=== PATIENT | female | born 1960 ===

== ENCOUNTER 2017-08-06 12:02 | Inpatient (IN) | payer OTHER ==
[2017-08-06] MEDS ORDERED: Sodium Chloride 0.9% 1,000 ML IV STA (13:10)
--- NOTE | 2017-08-06 13:14 | ED PDOC ---
HPI: Abdomen Time Seen by Provider: 08/06/17 12:58 Chief Complaint (Nursing): Headache History Per: Patient Onset/Duration Of Symptoms: Days (3) Current Symptoms Are (Timing): Still Present Severity: Moderate Pain Scale Rating Of: 4 Location Of Pain/Discomfort: RLQ, LLQ Quality Of Discomfort: Cramping Associated Symptoms: Chills, Nausea, Vomiting, Diarrhea. denies: Urinary Symptoms Additional Complaint(s): Lower abd pain assoc with NVD and chills. Also c/o headache. Past Medical History Vital Signs: Last Vital Signs Temp 97.9 F 08/06/17 12:14 Pulse 85 08/06/17 12:14 Resp 18 08/06/17 12:14 BP 117/97 H 08/06/17 12:14 Pulse Ox 98 08/06/17 13:14 - Medical History Other PMH: Diverticulosis - Family History Family History: States: Unknown Family Hx - Allergies Allergies/Adverse Reactions: Allergies Allergy/AdvReac Type Severity Reaction Status Date / Time No Known Allergies Allergy Verified 08/06/17 12:14 Review of Systems ROS Statement: Except As Marked, All Systems Reviewed And Found Negative Constitutional: Positive for: Chills Gastrointestinal: Positive for: Nausea, Vomiting, Abdominal Pain, Diarrhea Neurological: Positive for: Headache Physical Exam - Reviewed Nursing Documentation Reviewed: Yes Vital Signs Reviewed: Yes - Physical Exam Appears: Positive for: Non-toxic, Uncomfortable Head Exam: Positive for: ATRAUMATIC, NORMAL INSPECTION, NORMOCEPHALIC Skin: Positive for: Normal Color, Warm, DRY Eye Exam: Positive for: EOMI, Normal appearance, PERRL ENT: Positive for: Other (Mucous membranes dry) Neck: Positive for: Normal, Painless ROM Cardiovascular/Chest: Positive for: Regular Rate, Rhythm Respiratory: Positive for: CNT, Normal Breath Sounds Gastrointestinal/Abdominal: Positive for: Soft, Tenderness (Lower quads bilat.) Back: Positive for: Normal Inspection Extremity: Positive for: Normal ROM Neurologic/Psych: Positive for: Alert, Oriented. Negative for: Motor/Sensory Deficits - Laboratory Results Result Diagrams: 08/06/17 13:40 08/06/17 13:40 - ECG O2 Sat by Pulse Oximetry: 98 Disposition - Clinical Impression Clinical Impression: Diverticular disease, Headache - Patient ED Disposition Is Patient to be Admitted: Yes - Disposition Disposition Time: 16:48 Condition: FAIR Forms: [facility] (Albanian) - Pt Status Changed To: Hospital Disposition Of: Observation - POA Present On Arrival: None
[2017-08-06 13:55] LABS: BASO % 0.2 % (0.0-2.0); EOS % 0.3 % (0.0-4.0); HEMOGLOBIN 14.5 g/dL (12.0-16.0); LYMPH # 0.5 K/uL (1.0-4.3); LYMPH % 19.7 % (20.0-40.0); MEAN CELL VOLUME 88.7 fl (81.0-99.0); MEAN CORPUSCULAR HEMOGLOBIN 30.1 pg (27.0-31.0); MEAN CORPUSCULAR HGB CONC 33.9 g/dL (33.0-37.0); MEAN PLATELET VOLUME 9.5 fl (7.2-11.7); MONO % 0.4 % (0.0-10.0); NEUT # 1.9 K/uL (1.8-7.0); NEUT % 79.4 % (50.0-75.0); NRBC % 0.2 % (0.0-0.0); RBC 4.83 Mil/uL (3.80-5.20); RED CELL DISTRIBUTION WIDTH 13.5 % (11.5-14.5); WHITE BLOOD COUNT 2.4 K/uL (4.8-10.8)
[2017-08-06 14:02] LABS: ALB/GLOB RATIO 1.6 (1.0-2.1); ALBUMIN 4.2 g/dL (3.5-5.0); ALT/SGPT 104 U/L (9-52); AST/SGOT 152 U/L (14-36); BLOOD UREA NITROGEN 16 mg/dl (7-17); CALCIUM 9.2 mg/dL (8.4-10.2); GFR AFRICAN-AMERICAN > 60; GFR NON-AFRICAN AMERICAN > 60
[2017-08-06] MEDS ORDERED: metroNIDAZOLE 500mg/100ml NS 100 ML IVPB STA (16:45)
[2017-08-06] MEDS ORDERED: Ciprofloxacin 400mg/200ml D5W 400 MG/200 ML BAG IVPB STA (16:45)
--- NOTE | 2017-08-06 17:36 | CT ---
PROCEDURE: CT HEAD WITHOUT CONTRAST. HISTORY: Headache COMPARISON: None available. TECHNIQUE: Axial computed tomography images were obtained through the head/brain without intravenous contrast. Coronal and sagittal reconstructed images. Radiation dose: Total exam DLP = 727.29 mGy-cm. This CT exam was performed using one or more of the following dose reduction techniques: Automated exposure control, adjustment of the mA and/or kV according to patient size, and/or use of iterative reconstruction technique. FINDINGS: HEMORRHAGE: No intracranial hemorrhage. BRAIN: No mass effect or edema. No atrophy or chronic microvascular ischemic changes. VENTRICLES: Unremarkable. No hydrocephalus. CALVARIUM: Unremarkable. PARANASAL SINUSES: Unremarkable as visualized. No significant inflammatory changes. MASTOID AIR CELLS: Unremarkable as visualized. No inflammatory changes. OTHER FINDINGS: None. IMPRESSION: No acute intracranial abnormalities. No significant findings to account for the clinical presentation. She
--- NOTE | 2017-08-07 00:31 | PCM.RRT ---
<Serena Pereyra - Last Filed: 08/07/17 00:46> I.Reason for ENVIRONMENTAL ANALYST - A) Acute Change in Patient: Subjective: 56 yo F with hx diverticular disease, ENVIRONMENTAL ANALYST called for hypotension. S: On arrival, 56 yo F, resting in bed, awake, alert, able to speak in full sentences. States she feels "so-so." O: CV: S1S2, RRR Resp: clear to auscultation bilaterally, normal effort Abd: +BS, soft, no rebound/guarding Ext: no edema Vitals 82/48 mm Hg, HR 67, RR 16, O2 sat 99% on 2L O2, 98.6F NSR @ 66 bpm on cafeteria monitor Fingerstick 113 Repeat BP measurements 85/57, 85/54. HR 66-67, O2 sat remained 98-99%. Additional liter NS started during ENVIRONMENTAL ANALYST. A/P 56 yo F with hx diverticular disease, ENVIRONMENTAL ANALYST called for hypotension. CBC, CMP, VBG+ lactate, urinalysis, urine culture, lipase Transfer to ICU Monitor BP in response to fluids; consider pressors Pt seen/discussed with hospitalist honing machine set up operator Dr. Jeter. <Jelani Jeter - Last Filed: 08/07/17 06:26> ENVIRONMENTAL ANALYST Nurse Assessment - Vital Signs Vital Signs: Rapid Response Vital Sign Blood Pressure 85/54 Pulse Rate 65 Respiratory Rate 13 Temperature 98.7 F Oxygen Saturation 99 - Vital Signs at end of ENVIRONMENTAL ANALYST Vital Signs at end of ENVIRONMENTAL ANALYST: Rapid Response End Vital Sign Blood Pressure 74/45 Pulse Rate 66 Respiratory Rate 18 Temperature 98.1 F O2 Sat by Pulse Oximetry 99 Attending/Attestation - Attestation I have personally seen and examined this patient.: Yes I have fully participated in the care of the patient.: Yes I have reviewed all pertinent clinical information, including history, physical exam and plan: Yes Notes (Text): 08/07/17 06:22 I saw and examined this patient shoulder to shoulder with Dr Preeyra. The assessment and plan represent my direct input. ENVIRONMENTAL ANALYST called because of hypotension with SBP initially 84mmhg and falling to 73mmhg The patient was given IV NS bolus total of 1.5 liters. initally with no significant improvement the patient was transferred to ICU as preparation for Pressors. Jelani Jeter MD
[2017-08-07 00:48] LABS: SQUAMOUS EPITHIAL 1 /hpf (0-5); URINE BILIRUBIN NEGATIVE (NEGATIVE); URINE BLOOD NEGATIVE (NEGATIVE); URINE CLARITY CLEAR (Clear); URINE COLOR STRAW (YELLOW); URINE GLUCOSE (UA) NEG (Normal); URINE LEUKOCYTE ESTERASE NEG Leu/uL (Negative); URINE PROTEIN NEGATIVE (NEGATIVE); URINE UROBILINOGEN 0.2-1.0 mg/dL (0.2-1.0)
[2017-08-07 00:52] LABS: EOS % 0.1 % (0.0-4.0); HEMOGLOBIN 11.6 g/dL (12.0-16.0); LYMPH # 0.5 K/uL (1.0-4.3); LYMPH % 4.9 % (20.0-40.0); MEAN CELL VOLUME 90.1 fl (81.0-99.0); MEAN CORPUSCULAR HEMOGLOBIN 30.1 pg (27.0-31.0); MEAN CORPUSCULAR HGB CONC 33.4 g/dL (33.0-37.0); MEAN PLATELET VOLUME 9.3 fl (7.2-11.7); MONO # 0.7 K/uL (0.0-0.8); MONO % 7.1 % (0.0-10.0); NEUT # 8.5 K/uL (1.8-7.0); NEUT % 87.9 % (50.0-75.0); PLATELET COUNT 97 K/uL (130-400); RBC 3.86 Mil/uL (3.80-5.20); RED CELL DISTRIBUTION WIDTH 13.6 % (11.5-14.5); WHITE BLOOD COUNT 9.6 K/uL (4.8-10.8)
[2017-08-07 01:02] LABS: ALB/GLOB RATIO 1.2 (1.0-2.1); ALBUMIN 2.9 g/dL (3.5-5.0); ALT/SGPT 157 U/L (9-52); AST/SGOT 132 U/L (14-36); BLOOD UREA NITROGEN 12 mg/dl (7-17); CALCIUM 8.1 mg/dL (8.4-10.2); GFR AFRICAN-AMERICAN > 60; GFR NON-AFRICAN AMERICAN > 60
--- NOTE | 2017-08-07 01:10 | CP.PCM.CON ---
History of Present Illness - History of Present Illness History of Present Illness: PMD: Alfredo Quiroz MD Reson for Consult: Critical Care and management of Hypotension Chief Complaint: Hypotension/Abdominal pain HPI: the hx was obtained from the patient and after review of the medical records. She is a 56 years old female with hx of Diverticuolosis who came to the ED referring 2-3 weeks of headache, lower abdominal pain RLQ and LLQ, that is continuous, diarrhea, nausea and vomits with chills and body aches. She was admitted to the Medical Unit where Rapid Response Team was called because her Blood pressure decreased to 84/54mmhg. Because of unsuccessful resuscitation, she was transferred to the ICU to have Norepinephrine started if no improvement. PMH: Diverticulosis PSH: [place] Section SH: No illegal drug use; No Alcohol use; Never Smoked FH: States: Unknown Family Hx Allergies: NKDA Medication: None Review of Systems - Constitutional Constitutional: Chills, Headache - EENT Eyes: Requires Corrective Lenses. absent: Floaters, Itchy Eyes Ears: absent: Decreased Hearing, Ear Pain Nose/Mouth/Throat: absent: Epistaxis, Nasal Congestion - Cardiovascular Cardiovascular: absent: Chest Pain, Diaphoresis, Edema - Respiratory Respiratory: absent: Cough, Wheezing, Chest Congestion - Gastrointestinal Gastrointestinal: Abdominal Pain, Diarrhea, Nausea, Vomiting - Genitourinary Genitourinary: absent: Dysuria, Flank Pain - Musculoskeletal Musculoskeletal: Arthralgias - Integumentary Integumentary: absent: Pruritus, Rash, Sores, Striae, Swelling - Neurological Neurological: Headaches, Weakness. absent: Confusion, Focal Weakness - Psychiatric Psychiatric: absent: Anxiety, Depression, Panic Attacks - Endocrine Endocrine: absent: Palpitations, Polydipsia, Polyuria - Hematologic/Lymphatic Hematologic: absent: Easy Bleeding, Easy Bruising Past Patient History - Past Medical History & Family History Past Medical History?: Yes - Past Social History Smoking Status: Never Smoked Chewing Tobacco Use: No Cigar Use: No Alcohol: None Drugs: Denies - CARDIAC Hx Cardiac Disorders: No - PULMONARY Hx Respiratory Disorders: No - NEUROLOGICAL Hx Neurological Disorder: No - HEENT Hx HEENT Problems: No - RENAL Hx Chronic Kidney Disease: No - ENDOCRINE/METABOLIC Hx Endocrine Disorders: No - HEMATOLOGICAL/ONCOLOGICAL Hx Blood Disorders: No - INTEGUMENTARY Hx Dermatological Problems: No - MUSCULOSKELETAL/RHEUMATOLOGICAL Hx Musculoskeletal Disorders: No Hx Falls: No - GASTROINTESTINAL Hx Gastrointestinal Disorders: Yes Other/Comment: diverticulosis - GENITOURINARY/GYNECOLOGICAL Hx Genitourinary Disorders: No - PSYCHIATRIC Hx Psychophysiologic Disorder: No Hx Substance Use: No - SURGICAL HISTORY Hx Surgeries: Yes Hx Section: Yes Hx Cholecystectomy: Yes Hx Hysterectomy: Yes - ANESTHESIA Hx Anesthesia: Yes Hx Anesthesia Reactions: Yes Hx Malignant Hyperthermia: No Meds Allergies/Adverse Reactions: Allergies Allergy/AdvReac Type Severity Reaction Status Date / Time No Known Allergies Allergy Verified 08/06/17 12:14 - Medications Medications: Current Medications Dicyclomine HCl (Bentyl) 20 mg PO QID PRN PRN Reason: abd cramping Famotidine (Pepcid) 20 mg IVP Q12 SHELLI Last Admin: 08/06/17 22:30 Dose: 20 mg Ciprofloxacin (Cipro 400mg/200ml Dsw) 400 mg in 200 mls @ 200 mls/hr IVPB Q12 SHELLI PRN Reason: Protocol Ketorolac Tromethamine (Toradol) 30 mg IVP Q6 PRN PRN Reason: Pain, moderate (4-7) Last Admin: 08/06/17 20:26 Dose: 30 mg Morphine Sulfate (Morphine) 2 mg IVP Q4 PRN PRN Reason: Pain, severe (8-10) Ondansetron HCl (Zofran Inj) 4 mg IVP Q6 PRN PRN Reason: Nausea/Vomiting Physical Exam - Constitutional Appears: No Acute Distress - Head Exam Head Exam: ATRAUMATIC, NORMAL INSPECTION, NORMOCEPHALIC - Eye Exam Eye Exam: EOMI, Normal appearance Pupil Exam: NORMAL ACCOMODATION, PERRL - ENT Exam ENT Exam: Mucous Membranes Moist, Normal Exam - Neck Exam Neck exam: Positive for: Full Rom, Normal Inspection, Tenderness - Respiratory Exam Respiratory Exam: absent: Decreased Breath Sounds, Rhonchi, Wheezes - Cardiovascular Exam Cardiovascular Exam: REGULAR RHYTHM, RRR, +S1, +S2 - GI/Abdominal Exam Additional comments: Full, soft, decreased bowel sounds, mild generalized tenderness, no rebound, no guarding. - Rectal Exam Rectal Exam: Deferred - Extremities Exam Extremities exam: Positive for: normal inspection. Negative for: full ROM, pedal edema - Back Exam Back exam: NORMAL INSPECTION. absent: CVA tenderness (L), CVA tenderness (R) - Neurological Exam Neurological exam: Alert, CN II-XII Intact, Oriented x3, Reflexes Normal - Psychiatric Exam Psychiatric exam: Flat Affect - Skin Skin Exam: Dry, Intact, Normal Color, Warm Results - Vital Signs Recent Vital Signs: Last Vital Signs Temp 98 F 08/06/17 23:55 Pulse 67 08/06/17 23:55 Resp 20 08/06/17 23:55 BP 80/46 L 08/06/17 23:55 Pulse Ox 98 08/06/17 23:55 - Labs Result Diagrams: 08/07/17 00:30 08/07/17 00:30 Labs: Laboratory Results - last 24 hr 08/06/17 08/06/17 08/06/17 13:40 13:40 23:58 WBC 2.4 L RBC 4.83 Hgb 14.5 Hct 42.9 MCV 88.7 MCH 30.1 MCHC 33.9 RDW 13.5 Plt Count 128 L MPV 9.5 Neut % (Auto) 79.4 H Lymph % (Auto) 19.7 L [place] % (Auto) 0.4 Eos % (Auto) 0.3 Baso % (Auto) 0.2 Neut # (Auto) 1.9 Lymph # (Auto) 0.5 L [place] # (Auto) 0.0 Eos # (Auto) 0.0 Baso # (Auto) 0.0 Sodium 143 Potassium 3.6 Chloride 106 Carbon Dioxide 18 L Anion Gap 23 H BUN 16 Creatinine 0.7 Est GFR ( Amer) > 60 Est GFR (Non-Af Amer) > 60 POC Glucose (mg/dL) 113 H Random Glucose 104 Calcium 9.2 Total Bilirubin 1.2 AST 152 H ALT 104 H Alkaline Phosphatase 83 Total Protein 6.8 Albumin 4.2 Globulin 2.6 Albumin/Globulin Ratio 1.6 Urine Color Urine Clarity Urine pH Ur Specific [place] Urine Protein Urine Glucose (UA) Urine Ketones Urine Blood Urine Nitrate Urine Bilirubin Urine Urobilinogen Ur Leukocyte Esterase Urine RBC (Auto) Urine Microscopic WBC Ur Squamous Epith Cells 08/07/17 08/07/17 08/07/17 00:30 00:30 00:30 WBC 9.6 D RBC 3.86 Hgb 11.6 L D Hct 34.8 MCV 90.1 MCH 30.1 MCHC 33.4 RDW 13.6 Plt Count 97 L D MPV 9.3 Neut % (Auto) 87.9 H Lymph % (Auto) 4.9 L [place] % (Auto) 7.1 Eos % (Auto) 0.1 Baso % (Auto) 0.0 Neut # (Auto) 8.5 H Lymph # (Auto) 0.5 L [place] # (Auto) 0.7 Eos # (Auto) 0.0 Baso # (Auto) 0.0 Sodium 142 Potassium 3.5 L Chloride 107 Carbon Dioxide 21 L Anion Gap 18 BUN 12 Creatinine 0.7 Est GFR ( Amer) > 60 Est GFR (Non-Af Amer) > 60 POC Glucose (mg/dL) Random Glucose 109 H Calcium 8.1 L Total Bilirubin 0.7 AST 132 H ALT 157 H D Alkaline Phosphatase 54 Total Protein 5.3 L Albumin 2.9 L D Globulin 2.4 Albumin/Globulin Ratio 1.2 Urine Color Straw Urine Clarity Clear Urine pH 6.0 Ur Specific [place] 1.005 Urine Protein Negative Urine Glucose (UA) Neg Urine Ketones Negative Urine Blood Negative Urine Nitrate Negative Urine Bilirubin Negative Urine Urobilinogen 0.2-1.0 Ur Leukocyte Esterase Neg Urine RBC (Auto) < 1 Urine Microscopic WBC < 1 Ur Squamous Epith Cells 1 - Imaging and Cardiology CT scan - head Status: Image reviewed by me, Report reviewed by me Additional comment: No acute intracraneal abnormality Assessment & Plan - Assessment and Plan (Free Text) Assessment: #. Hypotension #. Diverticular Disease #. Abdominal Pain #. Thrombocytopenia #. Hypokalemia Plan: 56 years old female with hx of Diverticuolosis who came to the ED referring 2-3 weeks of headache, lower abdominal pain RLQ and LLQ, that is continuous, diarrhea, nausea and vomits with chills and body aches. She was admitted to the Medical Unit where Rapid Response Team was called because her Blood pressure decreased to 84/54mmhg. Because of unsuccessful resuscitation, she was transferred to the ICU to have Norepinephrine started if no improvement #. Hypotension probably secondary to septic shock vs neurogenic shock - IV fluids NS one Liter bolus then continue at 200Mls /hr - Start Vasopressor if no improvement of BP - Follow Blood culture #. Diverticular Disease most likely Diverticulosis. - Patient will need CT abdomen with contrast to confirm Diverticulitis - Cipro - flagyl - NPO #. Abdominal Pain - Pain management #. Thrombocytopenia most likely not due to Heparin induced Thrombocytopenia but consider Sepsis as the cause - Treat Infection - Follow Platelets #. Hypokalemia - Replete KCL #. DVT prophylaxis with SCD #. CODE Status: Full - Date & Time Date: 08/07/17 Time: 01:10
[2017-08-07] MEDS ORDERED: Sodium Chloride 0.9% 1,000 ML IV SCH ×3 (01:15→18:00)
[2017-08-07 01:21] LABS: VENOUS BLOOD GAS BASE EXCESS -3.3 mmol/L (0.0-2.0); VENOUS BLOOD GAS PCO2 36 mmHg (40-60); VENOUS BLOOD GAS PO2 51 mm/Hg (30-55); VENOUS BLOOD PH 7.38 (7.32-7.43)
[2017-08-07] MEDS: Sodium Chloride 0.9% 1,000 ML IV SCH ×2 (02:00→08:06)
[2017-08-07 02:42] LABS: ANISOCYTOSIS SLIGHT; BANDS 2 % (0-2); BASOPHIL 3 % (0-2); HYPOCHROMIC MODERATE; LARGE PLATELETS PRESENT; LYMPHOCYTE 8 % (20-50); MONOCYTE 4 % (0-10); NEUTROPHIL 83 % (42-75); OVALOCYTES SLIGHT; PLATELET ESTIMATE MARKEDLY DECREASED (NORMAL); TOTAL CELLS COUNTED 100
[2017-08-07] MEDS ORDERED: Iohexol 240 (50 ml) PO ONE (07:27)
--- NOTE | 2017-08-07 08:03 | CP.PCM.HP ---
History of Present Illness - History of Present Illness History of Present Illness: pt admitted for diverticulosis w/ abd pain, no f/c, n/v/d at present. had n/v ship's captain. pt had outpt ct w/ diverticulosis noted surgery/gi consult pending pt required training associate overnight r/t hypotension. bp low normal at present. all bw noted. pt hadheadache yesterday ct normal, no c/o headache at present c/o chronic fatigue Present on Admission - Present on Admission Any Indicators Present on Admission: No Review of Systems - Gastrointestinal Gastrointestinal: As Per HPI, Abdominal Pain, Nausea, Vomiting - Neurological Neurological: As Per HPI, Headaches Past Patient History - Past Medical History & Family History Past Medical History?: Yes - Past Social History Smoking Status: Never Smoked Chewing Tobacco Use: No Cigar Use: No Alcohol: None Drugs: Denies - CARDIAC Hx Cardiac Disorders: No - PULMONARY Hx Respiratory Disorders: No - NEUROLOGICAL Hx Neurological Disorder: No - HEENT Hx HEENT Problems: No - RENAL Hx Chronic Kidney Disease: No - ENDOCRINE/METABOLIC Hx Endocrine Disorders: No - HEMATOLOGICAL/ONCOLOGICAL Hx Blood Disorders: No - INTEGUMENTARY Hx Dermatological Problems: No - MUSCULOSKELETAL/RHEUMATOLOGICAL Hx Musculoskeletal Disorders: No Hx Falls: No - GASTROINTESTINAL Hx Gastrointestinal Disorders: Yes Other/Comment: diverticulosis - GENITOURINARY/GYNECOLOGICAL Hx Genitourinary Disorders: No - PSYCHIATRIC Hx Psychophysiologic Disorder: No Hx Substance Use: No - SURGICAL HISTORY Hx Surgeries: Yes Hx Section: Yes Hx Cholecystectomy: Yes Hx Hysterectomy: Yes - ANESTHESIA Hx Anesthesia: Yes Hx Anesthesia Reactions: Yes Hx Malignant Hyperthermia: No Meds Allergies/Adverse Reactions: Allergies Allergy/AdvReac Type Severity Reaction Status Date / Time No Known Allergies Allergy Verified 08/06/17 12:14 Physical Exam - Constitutional Appears: Well, Non-toxic, No Acute Distress - Head Exam Head Exam: ATRAUMATIC, NORMAL INSPECTION, NORMOCEPHALIC - Eye Exam Eye Exam: EOMI, Normal appearance, PERRL Pupil Exam: NORMAL ACCOMODATION, PERRL - ENT Exam ENT Exam: Mucous Membranes Moist, Normal Exam - Neck Exam Neck exam: Positive for: Normal Inspection - Respiratory Exam Respiratory Exam: Clear to Auscultation Bilateral, NORMAL BREATHING PATTERN - Cardiovascular Exam Cardiovascular Exam: REGULAR RHYTHM, RRR, +S1, +S2 - GI/Abdominal Exam GI & Abdominal Exam: Normal Bowel Sounds, Soft. absent: Tenderness - Extremities Exam Extremities exam: Positive for: full ROM, normal capillary refill, normal inspection, pedal pulses present - Back Exam Back exam: NORMAL INSPECTION - Neurological Exam Neurological exam: Alert, CN II-XII Intact, Normal Gait, Oriented x3, Reflexes Normal - Psychiatric Exam Psychiatric exam: Normal Affect, Normal Mood - Skin Skin Exam: Dry, Intact, Normal Color, Warm Results - Vital Signs Recent Vital Signs: Last Vital Signs Temp 99 F 08/07/17 04:00 Pulse 59 L 08/07/17 06:00 Resp 16 08/07/17 06:00 BP 86/46 L 08/07/17 06:00 Pulse Ox 100 08/07/17 06:00 - Labs Result Diagrams: 08/07/17 00:30 08/07/17 00:30 Labs: Laboratory Results - last 24 hr 08/06/17 08/06/17 08/06/17 13:40 13:40 23:58 WBC 2.4 L RBC 4.83 Hgb 14.5 Hct 42.9 MCV 88.7 MCH 30.1 MCHC 33.9 RDW 13.5 Plt Count 128 L MPV 9.5 Neut % (Auto) 79.4 H Lymph % (Auto) 19.7 L [place] % (Auto) 0.4 Eos % (Auto) 0.3 Baso % (Auto) 0.2 Neut # (Auto) 1.9 Lymph # (Auto) 0.5 L [place] # (Auto) 0.0 Eos # (Auto) 0.0 Baso # (Auto) 0.0 Neutrophils % (Manual) Band Neutrophils % Lymphocytes % (Manual) Monocytes % (Manual) Basophils % (Manual) Platelet Estimate Large Platelets Hypochromasia (manual) Anisocytosis (manual) Ovalocytes pO2 VBG pH VBG pCO2 VBG HCO3 VBG Total CO2 VBG O2 Sat (Calc) VBG Base Excess VBG Potassium Glucose Lactate FiO2 Sodium 143 Potassium 3.6 Chloride 106 Carbon Dioxide 18 L Anion Gap 23 H BUN 16 Creatinine 0.7 Est GFR ( Amer) > 60 Est GFR (Non-Af Amer) > 60 POC Glucose (mg/dL) 113 H Random Glucose 104 Calcium 9.2 Total Bilirubin 1.2 AST 152 H ALT 104 H Alkaline Phosphatase 83 Total Protein 6.8 Albumin 4.2 Globulin 2.6 Albumin/Globulin Ratio 1.6 Venous Blood Potassium Urine Color Urine Clarity Urine pH Ur Specific [place] Urine Protein Urine Glucose (UA) Urine Ketones Urine Blood Urine Nitrate Urine Bilirubin Urine Urobilinogen Ur Leukocyte Esterase Urine RBC (Auto) Urine Microscopic WBC Ur Squamous Epith Cells 08/07/17 08/07/17 08/07/17 00:30 00:30 00:30 WBC 9.6 D RBC 3.86 Hgb 11.6 L D Hct 34.8 MCV 90.1 MCH 30.1 MCHC 33.4 RDW 13.6 Plt Count 97 L D MPV 9.3 Neut % (Auto) 87.9 H Lymph % (Auto) 4.9 L [place] % (Auto) 7.1 Eos % (Auto) 0.1 Baso % (Auto) 0.0 Neut # (Auto) 8.5 H Lymph # (Auto) 0.5 L [place] # (Auto) 0.7 Eos # (Auto) 0.0 Baso # (Auto) 0.0 Neutrophils % (Manual) 83 H Band Neutrophils % 2 Lymphocytes % (Manual) 8 L Monocytes % (Manual) 4 Basophils % (Manual) 3 H Platelet Estimate Markedly decreased L Large Platelets Present Hypochromasia (manual) Moderate Anisocytosis (manual) Slight Ovalocytes Slight pO2 VBG pH VBG pCO2 VBG HCO3 VBG Total CO2 VBG O2 Sat (Calc) VBG Base Excess VBG Potassium Glucose Lactate FiO2 Sodium 142 Potassium 3.5 L Chloride 107 Carbon Dioxide 21 L Anion Gap 18 BUN 12 Creatinine 0.7 Est GFR ( Amer) > 60 Est GFR (Non-Af Amer) > 60 POC Glucose (mg/dL) Random Glucose 109 H Calcium 8.1 L Total Bilirubin 0.7 AST 132 H ALT 157 H D Alkaline Phosphatase 54 Total Protein 5.3 L Albumin 2.9 L D Globulin 2.4 Albumin/Globulin Ratio 1.2 Venous Blood Potassium Urine Color Straw Urine Clarity Clear Urine pH 6.0 Ur Specific [place] 1.005 Urine Protein Negative Urine Glucose (UA) Neg Urine Ketones Negative Urine Blood Negative Urine Nitrate Negative Urine Bilirubin Negative Urine Urobilinogen 0.2-1.0 Ur Leukocyte Esterase Neg Urine RBC (Auto) < 1 Urine Microscopic WBC < 1 Ur Squamous Epith Cells 1 08/07/17 01:18 WBC RBC Hgb Hct MCV MCH MCHC RDW Plt Count MPV Neut % (Auto) Lymph % (Auto) [place] % (Auto) Eos % (Auto) Baso % (Auto) Neut # (Auto) Lymph # (Auto) [place] # (Auto) Eos # (Auto) Baso # (Auto) Neutrophils % (Manual) Band Neutrophils % Lymphocytes % (Manual) Monocytes % (Manual) Basophils % (Manual) Platelet Estimate Large Platelets Hypochromasia (manual) Anisocytosis (manual) Ovalocytes pO2 51 VBG pH 7.38 VBG pCO2 36 L VBG HCO3 22.0 VBG Total CO2 22.4 VBG O2 Sat (Calc) 90.0 H VBG Base Excess -3.3 L VBG Potassium 3.5 L Glucose 115 H Lactate 1.5 FiO2 21.0 Sodium 141.0 Potassium Chloride 115.0 H Carbon Dioxide Anion Gap BUN Creatinine Est GFR ( Amer) Est GFR (Non-Af Amer) POC Glucose (mg/dL) Random Glucose Calcium Total Bilirubin AST ALT Alkaline Phosphatase Total Protein Albumin Globulin Albumin/Globulin Ratio Venous Blood Potassium 3.5 L Urine Color Urine Clarity Urine pH Ur Specific [place] Urine Protein Urine Glucose (UA) Urine Ketones Urine Blood Urine Nitrate Urine Bilirubin Urine Urobilinogen Ur Leukocyte Esterase Urine RBC (Auto) Urine Microscopic WBC Ur Squamous Epith Cells Assessment & Plan (1) DVT prophylaxis Status: Acute (2) Hypotension Assessment and Plan: ivf, icu care monitor closely no obv s/s sepsis at this time Status: Acute (3) Chronic fatigue Assessment and Plan: outpt f/u-cardio and bw Status: Acute (4) Diverticular disease Assessment and Plan: gi/surgery consult cipro/flagyl pain control, nausea control liquid diet Status: Acute (5) Headache Assessment and Plan: ct head negative no neuro deficit Status: Acute Decision To Admit - Pt Status Changed To: Hospital Disposition Of: Inpatient - Admit Certification Admit to Inpatient:: After my assessment, the patient will require hospitalization for at least two midnights. This is because of the severity of symptoms shown, intensity of services needed, and/or the medical risk in this patient being treated as an outpatient. - . Bed Request Type: Intensive Care Admitting Physician: Martin Alvarado
--- NOTE | 2017-08-07 08:22 | CP.PCM.CON ---
History of Present Illness - History of Present Illness History of Present Illness: PGY5 GI Fellow Consult Note Patient is a 56yo female with PMHx significant for diverticulosis who presented to the ED with complaint of dysuria, lower abdominal/pelvic pain, nausea and vomiting for 2-3 days duration. In reality, states abdominal pain and dysuria has been ongoing for 2-3 weeks. Symptoms began with burning sensation with urination and slowly progressed to LLQ/RLQ abdominal pain which has since radiated to the left flank and back. In the last few days she became nauseated and vomited multiple times, developed right arm and B/L leg numbness/weakness which prompted her to come to the ED. In the months leading up to admission, she admits to worsening fatigue, SOB, dyspnea on exertion, orthopnea and intermittent chest pain. Overnight, patient developed hypotension (80/46) and was transferred to the ICU for closer monitoring. Presently, she states lower abdominal pain has resolved. 12 system ROS performed and otherwise negative except where stated PMHx: See HPI PSHx: , cholecystectomy, hysterectomy FHx: Aunt - CAD Social: Denies tobacco, EtOH or illicit drug use Endo: EGD - 1 year ago in [place] - unremarkable per patient Colonoscopy - 2 years ago - unremarkable per patient Past Patient History - Past Medical History & Family History Past Medical History?: Yes - Past Social History Smoking Status: Never Smoked Chewing Tobacco Use: No Cigar Use: No Alcohol: None Drugs: Denies - CARDIAC Hx Cardiac Disorders: No - PULMONARY Hx Respiratory Disorders: No - NEUROLOGICAL Hx Neurological Disorder: No - HEENT Hx HEENT Problems: No - RENAL Hx Chronic Kidney Disease: No - ENDOCRINE/METABOLIC Hx Endocrine Disorders: No - HEMATOLOGICAL/ONCOLOGICAL Hx Blood Disorders: No - INTEGUMENTARY Hx Dermatological Problems: No - MUSCULOSKELETAL/RHEUMATOLOGICAL Hx Musculoskeletal Disorders: No Hx Falls: No - GASTROINTESTINAL Hx Gastrointestinal Disorders: Yes Other/Comment: diverticulosis - GENITOURINARY/GYNECOLOGICAL Hx Genitourinary Disorders: No - PSYCHIATRIC Hx Psychophysiologic Disorder: No Hx Substance Use: No - SURGICAL HISTORY Hx Surgeries: Yes Hx Section: Yes Hx Cholecystectomy: Yes Hx Hysterectomy: Yes - ANESTHESIA Hx Anesthesia: Yes Hx Anesthesia Reactions: Yes Hx Malignant Hyperthermia: No Meds Allergies/Adverse Reactions: Allergies Allergy/AdvReac Type Severity Reaction Status Date / Time No Known Allergies Allergy Verified 08/06/17 12:14 - Medications Medications: Current Medications Dicyclomine HCl (Bentyl) 20 mg PO QID PRN PRN Reason: abd cramping Famotidine (Pepcid) 20 mg IVP Q12 [facility] Last Admin: 08/06/17 22:30 Dose: 20 mg Ciprofloxacin (Cipro 400mg/200ml Dsw) 400 mg in 200 mls @ 200 mls/hr IVPB Q12 [facility] PRN Reason: Protocol Sodium Chloride (Sodium Chloride 0.9%) 1,000 mls @ 1,000 mls/hr IV .Q1H [facility] Stop: 08/08/17 01:11 Last Admin: 08/07/17 08:06 Dose: 1,000 mls/hr Sodium Chloride (Sodium Chloride 0.9%) 1,000 mls @ 200 mls/hr IV .Q5H [facility] Stop: 08/07/17 11:14 Last Admin: 08/07/17 02:00 Dose: 200 mls/hr Metronidazole (Flagyl 500mg/100ml Ns) 100 mls @ 100 mls/hr IVPB Q12 [facility] PRN Reason: Protocol Ketorolac Tromethamine (Toradol) 30 mg IVP Q6 PRN PRN Reason: Pain, moderate (4-7) Last Admin: 08/06/17 20:26 Dose: 30 mg Morphine Sulfate (Morphine) 2 mg IVP Q4 PRN PRN Reason: Pain, severe (8-10) Ondansetron HCl (Zofran Inj) 4 mg IVP Q6 PRN PRN Reason: Nausea/Vomiting Physical Exam - Constitutional Appears: Non-toxic, No Acute Distress - Eye Exam Eye Exam: EOMI, PERRL - ENT Exam ENT Exam: Mucous Membranes Moist - Respiratory Exam Respiratory Exam: Clear to Auscultation Bilateral. absent: Rales, Rhonchi, Wheezes - Cardiovascular Exam Cardiovascular Exam: RRR, +S1, +S2 - GI/Abdominal Exam GI & Abdominal Exam: Normal Bowel Sounds, Soft. absent: Distended, Firm, Guarding, Hernia, Organomegaly, Rigid, Tenderness - Extremities Exam Additional comments: 1+ LE edema - Neurological Exam Neurological exam: Alert, Oriented x3 - Psychiatric Exam Psychiatric exam: Normal Affect, Normal Mood - Skin Skin Exam: Dry, Warm Results - Vital Signs Recent Vital Signs: Last Vital Signs Temp 99 F 08/07/17 04:00 Pulse 59 L 08/07/17 06:00 Resp 16 08/07/17 06:00 BP 86/46 L 08/07/17 06:00 Pulse Ox 100 08/07/17 06:00 - Labs Result Diagrams: 08/07/17 00:30 08/07/17 00:30 Labs: Laboratory Results - last 24 hr 08/06/17 08/06/17 08/06/17 13:40 13:40 23:58 WBC 2.4 L RBC 4.83 Hgb 14.5 Hct 42.9 MCV 88.7 MCH 30.1 MCHC 33.9 RDW 13.5 Plt Count 128 L MPV 9.5 Neut % (Auto) 79.4 H Lymph % (Auto) 19.7 L [place] % (Auto) 0.4 Eos % (Auto) 0.3 Baso % (Auto) 0.2 Neut # (Auto) 1.9 Lymph # (Auto) 0.5 L [place] # (Auto) 0.0 Eos # (Auto) 0.0 Baso # (Auto) 0.0 Neutrophils % (Manual) Band Neutrophils % Lymphocytes % (Manual) Monocytes % (Manual) Basophils % (Manual) Platelet Estimate Large Platelets Hypochromasia (manual) Anisocytosis (manual) Ovalocytes pO2 VBG pH VBG pCO2 VBG HCO3 VBG Total CO2 VBG O2 Sat (Calc) VBG Base Excess VBG Potassium Glucose Lactate FiO2 Sodium 143 Potassium 3.6 Chloride 106 Carbon Dioxide 18 L Anion Gap 23 H BUN 16 Creatinine 0.7 Est GFR ( Amer) > 60 Est GFR (Non-Af Amer) > 60 POC Glucose (mg/dL) 113 H Random Glucose 104 Calcium 9.2 Total Bilirubin 1.2 AST 152 H ALT 104 H Alkaline Phosphatase 83 Total Protein 6.8 Albumin 4.2 Globulin 2.6 Albumin/Globulin Ratio 1.6 Venous Blood Potassium Urine Color Urine Clarity Urine pH Ur Specific [place] Urine Protein Urine Glucose (UA) Urine Ketones Urine Blood Urine Nitrate Urine Bilirubin Urine Urobilinogen Ur Leukocyte Esterase Urine RBC (Auto) Urine Microscopic WBC Ur Squamous Epith Cells 08/07/17 08/07/17 08/07/17 00:30 00:30 00:30 WBC 9.6 D RBC 3.86 Hgb 11.6 L D Hct 34.8 MCV 90.1 MCH 30.1 MCHC 33.4 RDW 13.6 Plt Count 97 L D MPV 9.3 Neut % (Auto) 87.9 H Lymph % (Auto) 4.9 L [place] % (Auto) 7.1 Eos % (Auto) 0.1 Baso % (Auto) 0.0 Neut # (Auto) 8.5 H Lymph # (Auto) 0.5 L [place] # (Auto) 0.7 Eos # (Auto) 0.0 Baso # (Auto) 0.0 Neutrophils % (Manual) 83 H Band Neutrophils % 2 Lymphocytes % (Manual) 8 L Monocytes % (Manual) 4 Basophils % (Manual) 3 H Platelet Estimate Markedly decreased L Large Platelets Present Hypochromasia (manual) Moderate Anisocytosis (manual) Slight Ovalocytes Slight pO2 VBG pH VBG pCO2 VBG HCO3 VBG Total CO2 VBG O2 Sat (Calc) VBG Base Excess VBG Potassium Glucose Lactate FiO2 Sodium 142 Potassium 3.5 L Chloride 107 Carbon Dioxide 21 L Anion Gap 18 BUN 12 Creatinine 0.7 Est GFR ( Amer) > 60 Est GFR (Non-Af Amer) > 60 POC Glucose (mg/dL) Random Glucose 109 H Calcium 8.1 L Total Bilirubin 0.7 AST 132 H ALT 157 H D Alkaline Phosphatase 54 Total Protein 5.3 L Albumin 2.9 L D Globulin 2.4 Albumin/Globulin Ratio 1.2 Venous Blood Potassium Urine Color Straw Urine Clarity Clear Urine pH 6.0 Ur Specific [place] 1.005 Urine Protein Negative Urine Glucose (UA) Neg Urine Ketones Negative Urine Blood Negative Urine Nitrate Negative Urine Bilirubin Negative Urine Urobilinogen 0.2-1.0 Ur Leukocyte Esterase Neg Urine RBC (Auto) < 1 Urine Microscopic WBC < 1 Ur Squamous Epith Cells 1 08/07/17 01:18 WBC RBC Hgb Hct MCV MCH MCHC RDW Plt Count MPV Neut % (Auto) Lymph % (Auto) [place] % (Auto) Eos % (Auto) Baso % (Auto) Neut # (Auto) Lymph # (Auto) [place] # (Auto) Eos # (Auto) Baso # (Auto) Neutrophils % (Manual) Band Neutrophils % Lymphocytes % (Manual) Monocytes % (Manual) Basophils % (Manual) Platelet Estimate Large Platelets Hypochromasia (manual) Anisocytosis (manual) Ovalocytes pO2 51 VBG pH 7.38 VBG pCO2 36 L VBG HCO3 22.0 VBG Total CO2 22.4 VBG O2 Sat (Calc) 90.0 H VBG Base Excess -3.3 L VBG Potassium 3.5 L Glucose 115 H Lactate 1.5 FiO2 21.0 Sodium 141.0 Potassium Chloride 115.0 H Carbon Dioxide Anion Gap BUN Creatinine Est GFR ( Amer) Est GFR (Non-Af Amer) POC Glucose (mg/dL) Random Glucose Calcium Total Bilirubin AST ALT Alkaline Phosphatase Total Protein Albumin Globulin Albumin/Globulin Ratio Venous Blood Potassium 3.5 L Urine Color Urine Clarity Urine pH Ur Specific [place] Urine Protein Urine Glucose (UA) Urine Ketones Urine Blood Urine Nitrate Urine Bilirubin Urine Urobilinogen Ur Leukocyte Esterase Urine RBC (Auto) Urine Microscopic WBC Ur Squamous Epith Cells Assessment & Plan - Assessment and Plan (Free Text) Assessment: Patient is a 56yo female with PMHx significant for diverticulosis who presented to the ED with complaint of dysuria, lower abdominal/pelvic pain, nausea and vomiting for 2-3 days duration. -Lower abdominal pain/dysuria -Chest pain/SOB/Orthopnea/edema - R/O CHF, cardiac event Plan: -Pain resolved at this juncture -U/A unremarkable - UCx pending -Recommend cardiac work up given constellation of symptoms -H/O constipation - Miralax 17g PO QD PRN, may contribute to abdominal discomfort -If symptoms persist/worsen, consider CT A/P with PO/IV contrast -Diet as tolerated from GI standpoint -Analgesia/antiemetics per primary service - Date & Time Date: 08/07/17 Time: 06:50
[2017-08-07] MEDS: metroNIDAZOLE 500mg/100ml NS 100 ML IVPB SCH ×2 (08:27→20:23)
[2017-08-07] MEDS: Ciprofloxacin 400mg/200ml D5W 400 MG/200 ML BAG IVPB SCH ×2 (08:50→20:25)
--- NOTE | 2017-08-07 09:15 | CP.PCM.CON ---
<Tan Trinidad - Last Filed: 08/07/17 09:25> History of Present Illness - History of Present Illness History of Present Illness: General Surgery Consult: Dr. Hwang 56F with PMHx of diverticulosis reported to [facility] ED for fatigue and complaints of abdominal pain. Patient reports she has chronic fatigue and abdominal discomfort for about the past month or so. She states the abdominal pain got worse yesterday and reports having a couple bouts of non bloody emesis. Patient reports pain starts along her left flank and radiates towards lower abdominal region. She states she has dysuria and increase urinary frequency. Patient also reports chills. 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 Patient had [employer] over night for hypotension, pt responded to fluid resuscitation. PMHx: as stated above PSurgHx: Open cholecystectomy, Allergies: NKDA Soc Hx: Denies smoking, denies illicit drug use Fam Hx: non-contributory Review of Systems - Review of Systems Review of Systems: 12 pt ROS reviewed, unremarkable, except as stated in HPI Past Patient History - Past Medical History & Family History Past Medical History?: Yes - Past Social History Smoking Status: Never Smoked Chewing Tobacco Use: No Cigar Use: No Alcohol: None Drugs: Denies - CARDIAC Hx Cardiac Disorders: No - PULMONARY Hx Respiratory Disorders: No - NEUROLOGICAL Hx Neurological Disorder: No - HEENT Hx HEENT Problems: No - RENAL Hx Chronic Kidney Disease: No - ENDOCRINE/METABOLIC Hx Endocrine Disorders: No - HEMATOLOGICAL/ONCOLOGICAL Hx Blood Disorders: No - INTEGUMENTARY Hx Dermatological Problems: No - MUSCULOSKELETAL/RHEUMATOLOGICAL Hx Musculoskeletal Disorders: No Hx Falls: No - GASTROINTESTINAL Hx Gastrointestinal Disorders: Yes Other/Comment: diverticulosis - GENITOURINARY/GYNECOLOGICAL Hx Genitourinary Disorders: No - PSYCHIATRIC Hx Psychophysiologic Disorder: No Hx Substance Use: No - SURGICAL HISTORY Hx Surgeries: Yes Hx Section: Yes Hx Cholecystectomy: Yes Hx Hysterectomy: Yes - ANESTHESIA Hx Anesthesia: Yes Hx Anesthesia Reactions: Yes Hx Malignant Hyperthermia: No Meds Allergies/Adverse Reactions: Allergies Allergy/AdvReac Type Severity Reaction Status Date / Time No Known Allergies Allergy Verified 08/06/17 12:14 - Medications Medications: Current Medications Dicyclomine HCl (Bentyl) 20 mg PO QID PRN PRN Reason: abd cramping Famotidine (Pepcid) 20 mg IVP Q12 [facility] Last Admin: 08/06/17 22:30 Dose: 20 mg Ciprofloxacin (Cipro 400mg/200ml Dsw) 400 mg in 200 mls @ 200 mls/hr IVPB Q12 [facility] PRN Reason: Protocol Last Admin: 08/07/17 08:50 Dose: 200 mls/hr Sodium Chloride (Sodium Chloride 0.9%) 1,000 mls @ 1,000 mls/hr IV .Q1H [facility] Stop: 08/08/17 01:11 Last Admin: 08/07/17 08:06 Dose: 1,000 mls/hr Sodium Chloride (Sodium Chloride 0.9%) 1,000 mls @ 200 mls/hr IV .Q5H [facility] Stop: 08/07/17 11:14 Last Admin: 08/07/17 02:00 Dose: 200 mls/hr Metronidazole (Flagyl 500mg/100ml Ns) 100 mls @ 100 mls/hr IVPB Q12 [facility] PRN Reason: Protocol Last Admin: 08/07/17 08:27 Dose: 100 mls/hr Ketorolac Tromethamine (Toradol) 30 mg IVP Q6 PRN PRN Reason: Pain, moderate (4-7) Last Admin: 08/06/17 20:26 Dose: 30 mg Morphine Sulfate (Morphine) 2 mg IVP Q4 PRN PRN Reason: Pain, severe (8-10) Ondansetron HCl (Zofran Inj) 4 mg IVP Q6 PRN PRN Reason: Nausea/Vomiting Physical Exam - Constitutional Appears: No Acute Distress - Head Exam Head Exam: NORMOCEPHALIC - Eye Exam Eye Exam: EOMI, Normal appearance - ENT Exam ENT Exam: Mucous Membranes Moist - Respiratory Exam Respiratory Exam: NORMAL BREATHING PATTERN - Cardiovascular Exam Cardiovascular Exam: +S1, +S2 - GI/Abdominal Exam GI & Abdominal Exam: Soft, Tenderness. absent: Firm, Guarding, Rebound - Back Exam Back exam: CVA tenderness (L) - Neurological Exam Neurological exam: Alert, Oriented x3 - Psychiatric Exam Psychiatric exam: Normal Mood - Skin Skin Exam: Dry, Intact, Warm Results - Vital Signs Recent Vital Signs: Last Vital Signs Temp 97.9 F 08/07/17 08:00 Pulse 63 08/07/17 08:00 Resp 16 08/07/17 08:00 BP 105/67 08/07/17 08:00 Pulse Ox 95 08/07/17 08:00 - Labs Result Diagrams: 08/07/17 00:30 08/07/17 00:30 Labs: Laboratory Results - last 24 hr 08/06/17 08/06/17 08/06/17 13:40 13:40 23:58 WBC 2.4 L RBC 4.83 Hgb 14.5 Hct 42.9 MCV 88.7 MCH 30.1 MCHC 33.9 RDW 13.5 Plt Count 128 L MPV 9.5 Neut % (Auto) 79.4 H Lymph % (Auto) 19.7 L [place] % (Auto) 0.4 Eos % (Auto) 0.3 Baso % (Auto) 0.2 Neut # (Auto) 1.9 Lymph # (Auto) 0.5 L [place] # (Auto) 0.0 Eos # (Auto) 0.0 Baso # (Auto) 0.0 Neutrophils % (Manual) Band Neutrophils % Lymphocytes % (Manual) Monocytes % (Manual) Basophils % (Manual) Platelet Estimate Large Platelets Hypochromasia (manual) Anisocytosis (manual) Ovalocytes pO2 VBG pH VBG pCO2 VBG HCO3 VBG Total CO2 VBG O2 Sat (Calc) VBG Base Excess VBG Potassium Glucose Lactate FiO2 Sodium 143 Potassium 3.6 Chloride 106 Carbon Dioxide 18 L Anion Gap 23 H BUN 16 Creatinine 0.7 Est GFR ( Amer) > 60 Est GFR (Non-Af Amer) > 60 POC Glucose (mg/dL) 113 H Random Glucose 104 Calcium 9.2 Total Bilirubin 1.2 AST 152 H ALT 104 H Alkaline Phosphatase 83 Total Protein 6.8 Albumin 4.2 Globulin 2.6 Albumin/Globulin Ratio 1.6 Venous Blood Potassium Urine Color Urine Clarity Urine pH Ur Specific [place] Urine Protein Urine Glucose (UA) Urine Ketones Urine Blood Urine Nitrate Urine Bilirubin Urine Urobilinogen Ur Leukocyte Esterase Urine RBC (Auto) Urine Microscopic WBC Ur Squamous Epith Cells 08/07/17 08/07/17 08/07/17 00:30 00:30 00:30 WBC 9.6 D RBC 3.86 Hgb 11.6 L D Hct 34.8 MCV 90.1 MCH 30.1 MCHC 33.4 RDW 13.6 Plt Count 97 L D MPV 9.3 Neut % (Auto) 87.9 H Lymph % (Auto) 4.9 L [place] % (Auto) 7.1 Eos % (Auto) 0.1 Baso % (Auto) 0.0 Neut # (Auto) 8.5 H Lymph # (Auto) 0.5 L [place] # (Auto) 0.7 Eos # (Auto) 0.0 Baso # (Auto) 0.0 Neutrophils % (Manual) 83 H Band Neutrophils % 2 Lymphocytes % (Manual) 8 L Monocytes % (Manual) 4 Basophils % (Manual) 3 H Platelet Estimate Markedly decreased L Large Platelets Present Hypochromasia (manual) Moderate Anisocytosis (manual) Slight Ovalocytes Slight pO2 VBG pH VBG pCO2 VBG HCO3 VBG Total CO2 VBG O2 Sat (Calc) VBG Base Excess VBG Potassium Glucose Lactate FiO2 Sodium 142 Potassium 3.5 L Chloride 107 Carbon Dioxide 21 L Anion Gap 18 BUN 12 Creatinine 0.7 Est GFR ( Amer) > 60 Est GFR (Non-Af Amer) > 60 POC Glucose (mg/dL) Random Glucose 109 H Calcium 8.1 L Total Bilirubin 0.7 AST 132 H ALT 157 H D Alkaline Phosphatase 54 Total Protein 5.3 L Albumin 2.9 L D Globulin 2.4 Albumin/Globulin Ratio 1.2 Venous Blood Potassium Urine Color Straw Urine Clarity Clear Urine pH 6.0 Ur Specific [place] 1.005 Urine Protein Negative Urine Glucose (UA) Neg Urine Ketones Negative Urine Blood Negative Urine Nitrate Negative Urine Bilirubin Negative Urine Urobilinogen 0.2-1.0 Ur Leukocyte Esterase Neg Urine RBC (Auto) < 1 Urine Microscopic WBC < 1 Ur Squamous Epith Cells 1 08/07/17 01:18 WBC RBC Hgb Hct MCV MCH MCHC RDW Plt Count MPV Neut % (Auto) Lymph % (Auto) [place] % (Auto) Eos % (Auto) Baso % (Auto) Neut # (Auto) Lymph # (Auto) [place] # (Auto) Eos # (Auto) Baso # (Auto) Neutrophils % (Manual) Band Neutrophils % Lymphocytes % (Manual) Monocytes % (Manual) Basophils % (Manual) Platelet Estimate Large Platelets Hypochromasia (manual) Anisocytosis (manual) Ovalocytes pO2 51 VBG pH 7.38 VBG pCO2 36 L VBG HCO3 22.0 VBG Total CO2 22.4 VBG O2 Sat (Calc) 90.0 H VBG Base Excess -3.3 L VBG Potassium 3.5 L Glucose 115 H Lactate 1.5 FiO2 21.0 Sodium 141.0 Potassium Chloride 115.0 H Carbon Dioxide Anion Gap BUN Creatinine Est GFR ( Amer) Est GFR (Non-Af Amer) POC Glucose (mg/dL) Random Glucose Calcium Total Bilirubin AST ALT Alkaline Phosphatase Total Protein Albumin Globulin Albumin/Globulin Ratio Venous Blood Potassium 3.5 L Urine Color Urine Clarity Urine pH Ur Specific [place] Urine Protein Urine Glucose (UA) Urine Ketones Urine Blood Urine Nitrate Urine Bilirubin Urine Urobilinogen Ur Leukocyte Esterase Urine RBC (Auto) Urine Microscopic WBC Ur Squamous Epith Cells Assessment & Plan - Assessment and Plan (Free Text) Assessment: 56F with left flank pain radiating towards lower abdominal region Plan: NPO IVF ABx UA- negative Analgesic Anti-emetic F/u CT Abd & Pelvis Recommend cardiology consult D/w Dr. Jaiden Luciano PGY2 <Tirso Hwang - Last Filed: 08/07/17 16:35> History of Present Illness - History of Present Illness History of Present Illness: Patient was seen and examined at the bedside. Agree with resident's note above. No evidence of intra-abdominal pathology on the repeat CT scan. Meds - Medications Medications: Current Medications Dicyclomine HCl (Bentyl) 20 mg PO QID PRN PRN Reason: abd cramping Famotidine (Pepcid) 20 mg IVP Q12 [facility] Last Admin: 08/07/17 09:51 Dose: 20 mg Ciprofloxacin (Cipro 400mg/200ml Dsw) 400 mg in 200 mls @ 200 mls/hr IVPB Q12 [facility] PRN Reason: Protocol Last Admin: 08/07/17 08:50 Dose: 200 mls/hr Metronidazole (Flagyl 500mg/100ml Ns) 100 mls @ 100 mls/hr IVPB Q12 [facility] PRN Reason: Protocol Last Admin: 08/07/17 08:27 Dose: 100 mls/hr Sodium Chloride (Sodium Chloride 0.9%) 1,000 mls @ 150 mls/hr IV .Q6H40M [facility] Stop: 08/08/17 23:59 Ketorolac Tromethamine (Toradol) 30 mg IVP Q6 PRN PRN Reason: Pain, moderate (4-7) Last Admin: 08/06/17 20:26 Dose: 30 mg Morphine Sulfate (Morphine) 2 mg IVP Q4 PRN PRN Reason: Pain, severe (8-10) Ondansetron HCl (Zofran Inj) 4 mg IVP Q6 PRN PRN Reason: Nausea/Vomiting Last Admin: 08/07/17 11:54 Dose: 4 mg Physical Exam - GI/Abdominal Exam Additional comments: soft, very minimal tenderness to the lower abdomen, ND, BS+, no rebound, no guarding, well healed scars from prior surgeries Results - Vital Signs Recent Vital Signs: Last Vital Signs Temp 97.8 F 08/07/17 16:00 Pulse 61 08/07/17 16:00 Resp 13 08/07/17 16:00 BP 119/68 08/07/17 16:00 Pulse Ox 95 08/07/17 16:00 - Labs Result Diagrams: 08/07/17 00:30 08/07/17 00:30 Labs: Laboratory Results - last 24 hr 08/06/17 08/07/17 08/07/17 23:58 00:30 00:30 WBC 9.6 D RBC 3.86 Hgb 11.6 L D Hct 34.8 MCV 90.1 MCH 30.1 MCHC 33.4 RDW 13.6 Plt Count 97 L D MPV 9.3 Neut % (Auto) 87.9 H Lymph % (Auto) 4.9 L [place] % (Auto) 7.1 Eos % (Auto) 0.1 Baso % (Auto) 0.0 Neut # (Auto) 8.5 H Lymph # (Auto) 0.5 L [place] # (Auto) 0.7 Eos # (Auto) 0.0 Baso # (Auto) 0.0 Neutrophils % (Manual) 83 H Band Neutrophils % 2 Lymphocytes % (Manual) 8 L Monocytes % (Manual) 4 Basophils % (Manual) 3 H Platelet Estimate Markedly decreased L Large Platelets Present Hypochromasia (manual) Moderate Anisocytosis (manual) Slight Ovalocytes Slight pO2 VBG pH VBG pCO2 VBG HCO3 VBG Total CO2 VBG O2 Sat (Calc) VBG Base Excess VBG Potassium Glucose Lactate FiO2 Sodium 142 Potassium 3.5 L Chloride 107 Carbon Dioxide 21 L Anion Gap 18 BUN 12 Creatinine 0.7 Est GFR ( Amer) > 60 Est GFR (Non-Af Amer) > 60 POC Glucose (mg/dL) 113 H Random Glucose 109 H Calcium 8.1 L Total Bilirubin 0.7 AST 132 H ALT 157 H D Alkaline Phosphatase 54 Total Protein 5.3 L Albumin 2.9 L D Globulin 2.4 Albumin/Globulin Ratio 1.2 Venous Blood Potassium Urine Color Urine Clarity Urine pH Ur Specific [place] Urine Protein Urine Glucose (UA) Urine Ketones Urine Blood Urine Nitrate Urine Bilirubin Urine Urobilinogen Ur Leukocyte Esterase Urine RBC (Auto) Urine Microscopic WBC Ur Squamous Epith Cells 08/07/17 08/07/17 00:30 01:18 WBC RBC Hgb Hct MCV MCH MCHC RDW Plt Count MPV Neut % (Auto) Lymph % (Auto) [place] % (Auto) Eos % (Auto) Baso % (Auto) Neut # (Auto) Lymph # (Auto) [place] # (Auto) Eos # (Auto) Baso # (Auto) Neutrophils % (Manual) Band Neutrophils % Lymphocytes % (Manual) Monocytes % (Manual) Basophils % (Manual) Platelet Estimate Large Platelets Hypochromasia (manual) Anisocytosis (manual) Ovalocytes pO2 51 VBG pH 7.38 VBG pCO2 36 L VBG HCO3 22.0 VBG Total CO2 22.4 VBG O2 Sat (Calc) 90.0 H VBG Base Excess -3.3 L VBG Potassium 3.5 L Glucose 115 H Lactate 1.5 FiO2 21.0 Sodium 141.0 Potassium Chloride 115.0 H Carbon Dioxide Anion Gap BUN Creatinine Est GFR ( Amer) Est GFR (Non-Af Amer) POC Glucose (mg/dL) Random Glucose Calcium Total Bilirubin AST ALT Alkaline Phosphatase Total Protein Albumin Globulin Albumin/Globulin Ratio Venous Blood Potassium 3.5 L Urine Color Straw Urine Clarity Clear Urine pH 6.0 Ur Specific [place] 1.005 Urine Protein Negative Urine Glucose (UA) Neg Urine Ketones Negative Urine Blood Negative Urine Nitrate Negative Urine Bilirubin Negative Urine Urobilinogen 0.2-1.0 Ur Leukocyte Esterase Neg Urine RBC (Auto) < 1 Urine Microscopic WBC < 1 Ur Squamous Epith Cells 1 - Imaging and Cardiology CT scan - abdomen Status: Image reviewed by me, Report reviewed by me Assessment & Plan - Assessment and Plan (Free Text) Plan: - Start clear liquid diet - pain control - IV fluids - No general surgery intervention at present time - Repeat labs in am - Continue care as per medical and ICU teams - Will follow
[2017-08-07] MEDS ORDERED: Iohexol 300 100 ML IJ ONE (11:03)
--- NOTE | 2017-08-07 12:49 | CT ---
PROCEDURE: CT Abdomen and Pelvis with contrast HISTORY: LLQ pain. r/o diverticulitis COMPARISON: None. TECHNIQUE: Following oral and intravenous contrast administration, a CT examination of the abdomen and pelvis performed from the domes of the diaphragms to the symphysis pubis with reformatted datasets provided not only axial but also sagittal and coronal series. Contrast dose: Omnipaque 300, 95 cc Radiation dose: Total exam DLP = 343.46 mGy-cm. This CT exam was performed using one or more of the following dose reduction techniques: Automated exposure control, adjustment of the mA and/or kV according to patient size, and/or use of iterative reconstruction technique. FINDINGS: LOWER THORAX: 5.9 mm noncalcified, solid nodule seen at the right lower lobe in image 14 series 5 with with limited bilateral basilar dependent atelectasis noted otherwise. LIVER: Markedly diminished attenuation is seen throughout the liver compatible with hepatic steatosis. No intrahepatic biliary dilatation is identified. Trace fluid is seen abutting the medial margins of the right lobe liver inferiorly with the gallbladder not identified suggesting prior cholecystectomy. Clinically correlate. PANCREAS: Unremarkable. No gross lesion or ductal dilatation. SPLEEN: Unremarkable. ADRENALS: Unremarkable. No mass. KIDNEYS AND URETERS: Unremarkable. No hydronephrosis. No solid mass. VASCULATURE: Unremarkable. No aortic aneurysm. BOWEL: Stomach is mildly distended with retained oral contrast material and appears unremarkable. There is no obstruction of large or small bowel. Sigmoid diverticulosis is appreciated with the sigmoid colon not fully distended. Evaluation of the wall is limited as result. No pericolic reaction appreciate the would suggest diverticulitis however trace fluid seen the pelvis from an indeterminate etiology. APPENDIX: Normal appendix. PERITONEUM: Trace fluid seen the cul-de-sac as well as abutting the medial margins right lobe liver. LYMPH NODES: Unremarkable. No enlarged lymph nodes. BLADDER: Unremarkable. REPRODUCTIVE: Prior hysterectomy. BONES: No acute fracture. OTHER FINDINGS: None. IMPRESSION: 1. Sigmoid diverticulosis appreciated. The sigmoid colon is not fully distended limiting the evaluation of the wall. No pericolic reaction is seen the might indicate diverticulitis however there is trace fluid in the cul-de-sac and limited segmental colitis not completely excluded as result. 2. Prominent hepatic steatosis noted. 3. Questionable prior cholecystectomy. 4. Prior hysterectomy evident.
[2017-08-07 16:37] LABS: HEPATITIS B SURFACE AG Negative (NEGATIVE)
[2017-08-07 16:43] LABS: HEPATITIS A IGM NEGATIVE (NEGATIVE); HEPATITIS B CORE AB NEGATIVE (NEGATIVE)
[2017-08-07 16:54] LABS: HEPATITIS C ANTIBODY NEGATIVE (NEGATIVE)
--- NOTE | 2017-08-07 20:02 | CP.PCM.CON ---
History of Present Illness - History of Present Illness History of Present Illness: I was asked to evaluate patient by Dr long and Dr Alvarado. Patient is a 56 year old female with PMH diverticular disease who presents with weakness and fatigue. The patient was found to have hypotension and bradycardia. She was transferred to ICU for further management. She denies chest pain. Review of Systems - Constitutional Constitutional: absent: As Per HPI, Anorexia, Chills, Daytime Sleepiness, Excessive Sweating, Fatigue, Fever, Frequent Falls, Headache, Increased Appetite , Lethargy, Malaise, Night Sweats, Snoring, Sleep Apnea, Weight Gain, Weight Loss, Weakness, Other - EENT Eyes: absent: As Per HPI, Blind Spots, Blurred Vision, Change in Vision, Decreased Night Vision, Diplopia, Discharge, Dry Eye, Exophthalmos, Floaters, Irritation, Itchy Eyes, Loss of Peripheral Vision, Pain, Photophobia, Requires Corrective Lenses, Sees Flashes, Spots in Vision, Tunnel Vision, Other Visual Disturbances, Loss of Vision, Other Ears: absent: As Per HPI, Decreased Hearing, Ear Discharge, Ear Pain, Tinnitus, Abnormal Hearing, Disequilibrium, Dizziness, Other Nose/Mouth/Throat: absent: As Per HPI, Epistaxis, Nasal Congestion, Nasal Discharge, Nasal Obstruction, Nasal Trauma, Nose Pain, Post Nasal Drip, Sinus Pain, Sinus Pressure, Bleeding Gums, Change in Voice, Dental Pain, Dry Mouth, Dysphagia, Halitosis, Hoarsness, Lip Swelling, Mouth Lesions, Mouth Pain, Odynophagia, Sore Throat, Throat Swelling, Tongue Swelling, Facial Pain, Neck Pain, Neck Mass, Other - Cardiovascular Cardiovascular: absent: As Per HPI, Acrocyanosis, Chest Pain, Chest Pain at Rest , Chest Pain with Activity, Claudication, Diaphoresis, Dyspnea, Dyspnea on Exertion, Edema, Irregular Heart Rhythm, Pain Radiating to Arm/Neck/Jaw, Leg Edema, Leg Ulcers, Lightheadedness, Orthopnea, Palpitations, Paroxysmal Nocturnal Dyspnea, Pedal Edema, Radiating Pain, Rapid Heart Rate, Slow Heart Rate, Syncope, Other - Respiratory Respiratory: absent: As Per HPI, Cough, Dyspnea, Hemoptysis, Dyspnea on Exertion , Wheezing, Snoring, Stridor, Pain on Inspiration, Chest Congestion, Excessive Mucous Production, Change in Mucous Color, Pain with Coughing, Other - Gastrointestinal Gastrointestinal: Abdominal Pain - Genitourinary Genitourinary: absent: As Per HPI, Change in Urinary Stream, Difficulty Urinating, Dysuria, Flank Pain, Hematuria, Pyuria, Nocturia, Urinary Incontinence, Urinary Frequency, Urinary Hesitance, Urinary Urgency, Voiding Freq/Small Amts, Freq UTI, Hx Renal/Bladder Calculi, Hx /Renal Surgery, Bladder Distension, Other - Musculoskeletal Musculoskeletal: absent: As Per HPI, Abnormal Gait, Arthralgias, Atrophy, Back Pain, Deformity, Joint Swelling, Limited Range of Motion, Loss of Height, Muscle Cramps, Muscle Weakness, Myalgias, Neck Pain, Numbness, Radiating Pain into Limb, Stiffness, Tingling, Other - Integumentary Integumentary: absent: As Per HPI, Acne, Alopecia, Bleeding Lesions, Change in Hair, Change in Nails, Change in Pigmentation, Changing Lesions, Dry Skin, Erythema, Furuncle, Hirsutism, Lesions, New Lesions, Non-Healing Lesions, Photosensitivity, Pruritus, Rash, Skin Pain, Skin Ulcer, Sores, Striae, Swelling , Unusual Bruising, Wounds, Jaundice, Other - Neurological Neurological: absent: As Per HPI, Abnormal Gait, Abnormal Hearing, Abnormal Movements, Abnormal Speech, Behavioral Changes, Burning Sensations, Confusion, Convulsions, Disequilibrium, Dizziness, Numbness, Focal Weakness, Frequent Falls , Headaches, Lack of Coordination, Loss of Vision, Memory Loss, Paresthesias, Radicular Pain, Restless Legs, Sensory Deficit, Syncope, Tingling, Tremor, Vertigo, Weakness, Other Visual Disturbances, Other - Psychiatric Psychiatric: absent: As Per HPI, Abnormal Sleep Pattern, Anhedonia, Anxiety, Auditory Hallucinations, Behavioral Changes, Change in Appetite, Change in Libido, Confusion, Depression, Difficulty Concentrating, Hallucinations, Homicidal Ideation, Hopelessness, Irritability, Memory Loss, Mood Swings, Panic Attacks, Paranoia, Suicidal Ideation, Visual Hallucinations, Tactile Hallucinations, Other - Endocrine Endocrine: absent: As Per HPI, Change in Body Appearance, Change in Libido, Cold Intolorance, Deepening of Voice, Excessive Sweating, Fatigue, Flushing, Heat Intolorance, Increase in Ring/Shoe/Hat Size, Palpitations, Polydipsia, Polyphagia, Polyuria, Other - Hematologic/Lymphatic Hematologic: absent: As Per HPI, Easy Bleeding, Easy Bruising, Lymphadenopathy, Other Past Patient History - Past Medical History & Family History Past Medical History?: Yes - Past Social History Smoking Status: Never Smoked Chewing Tobacco Use: No Cigar Use: No Alcohol: None Drugs: Denies - CARDIAC Hx Cardiac Disorders: No - PULMONARY Hx Respiratory Disorders: No - NEUROLOGICAL Hx Neurological Disorder: No - HEENT Hx HEENT Problems: No - RENAL Hx Chronic Kidney Disease: No - ENDOCRINE/METABOLIC Hx Endocrine Disorders: No - HEMATOLOGICAL/ONCOLOGICAL Hx Blood Disorders: No - INTEGUMENTARY Hx Dermatological Problems: No - MUSCULOSKELETAL/RHEUMATOLOGICAL Hx Musculoskeletal Disorders: No Hx Falls: No - GASTROINTESTINAL Hx Gastrointestinal Disorders: Yes Other/Comment: diverticulosis - GENITOURINARY/GYNECOLOGICAL Hx Genitourinary Disorders: No - PSYCHIATRIC Hx Psychophysiologic Disorder: No Hx Substance Use: No - SURGICAL HISTORY Hx Surgeries: Yes Hx Section: Yes Hx Cholecystectomy: Yes Hx Hysterectomy: Yes - ANESTHESIA Hx Anesthesia: Yes Hx Anesthesia Reactions: Yes Hx Malignant Hyperthermia: No Meds Allergies/Adverse Reactions: Allergies Allergy/AdvReac Type Severity Reaction Status Date / Time No Known Allergies Allergy Verified 08/06/17 12:14 - Medications Medications: Current Medications Dicyclomine HCl (Bentyl) 20 mg PO QID PRN PRN Reason: abd cramping Famotidine (Pepcid) 20 mg IVP Q12 [facility] Last Admin: 08/07/17 09:51 Dose: 20 mg Ciprofloxacin (Cipro 400mg/200ml Dsw) 400 mg in 200 mls @ 200 mls/hr IVPB Q12 [facility] PRN Reason: Protocol Last Admin: 08/07/17 08:50 Dose: 200 mls/hr Metronidazole (Flagyl 500mg/100ml Ns) 100 mls @ 100 mls/hr IVPB Q12 [facility] PRN Reason: Protocol Last Admin: 08/07/17 08:27 Dose: 100 mls/hr Sodium Chloride (Sodium Chloride 0.9%) 1,000 mls @ 75 mls/hr IV .[id number] [facility] Stop: 08/08/17 17:59 Ketorolac Tromethamine (Toradol) 30 mg IVP Q6 PRN PRN Reason: Pain, moderate (4-7) Last Admin: 08/06/17 20:26 Dose: 30 mg Morphine Sulfate (Morphine) 2 mg IVP Q4 PRN PRN Reason: Pain, severe (8-10) Ondansetron HCl (Zofran Inj) 4 mg IVP Q6 PRN PRN Reason: Nausea/Vomiting Last Admin: 08/07/17 11:54 Dose: 4 mg Physical Exam - Constitutional Appears: Non-toxic - Head Exam Head Exam: NORMAL INSPECTION - Eye Exam Eye Exam: Normal appearance - ENT Exam ENT Exam: Mucous Membranes Moist - Neck Exam Neck exam: Positive for: Normal Inspection - Respiratory Exam Respiratory Exam: NORMAL BREATHING PATTERN - Cardiovascular Exam Cardiovascular Exam: REGULAR RHYTHM - GI/Abdominal Exam GI & Abdominal Exam: Normal Bowel Sounds - Rectal Exam Rectal Exam: Deferred - Extremities Exam Extremities exam: Negative for: pedal edema - Back Exam Back exam: NORMAL INSPECTION - Neurological Exam Neurological exam: Alert, Oriented x3 - Psychiatric Exam Psychiatric exam: Normal Affect - Skin Skin Exam: Normal Color Results - Vital Signs Recent Vital Signs: Last Vital Signs Temp 97.8 F 08/07/17 16:00 Pulse 62 08/07/17 18:00 Resp 21 08/07/17 18:00 BP 109/69 08/07/17 18:00 Pulse Ox 97 08/07/17 18:00 - Labs Result Diagrams: 08/08/17 04:20 08/08/17 04:20 Labs: Laboratory Results - last 24 hr 08/06/17 08/07/17 08/07/17 23:58 00:30 00:30 WBC 9.6 D RBC 3.86 Hgb 11.6 L D Hct 34.8 MCV 90.1 MCH 30.1 MCHC 33.4 RDW 13.6 Plt Count 97 L D MPV 9.3 Neut % (Auto) 87.9 H Lymph % (Auto) 4.9 L [place] % (Auto) 7.1 Eos % (Auto) 0.1 Baso % (Auto) 0.0 Neut # (Auto) 8.5 H Lymph # (Auto) 0.5 L [place] # (Auto) 0.7 Eos # (Auto) 0.0 Baso # (Auto) 0.0 Neutrophils % (Manual) 83 H Band Neutrophils % 2 Lymphocytes % (Manual) 8 L Monocytes % (Manual) 4 Basophils % (Manual) 3 H Platelet Estimate Markedly decreased L Large Platelets Present Hypochromasia (manual) Moderate Anisocytosis (manual) Slight Ovalocytes Slight ESR pO2 VBG pH VBG pCO2 VBG HCO3 VBG Total CO2 VBG O2 Sat (Calc) VBG Base Excess VBG Potassium Glucose Lactate FiO2 Sodium 142 Potassium 3.5 L Chloride 107 Carbon Dioxide 21 L Anion Gap 18 BUN 12 Creatinine 0.7 Est GFR ( Amer) > 60 Est GFR (Non-Af Amer) > 60 POC Glucose (mg/dL) 113 H Random Glucose 109 H Calcium 8.1 L Total Bilirubin 0.7 AST 132 H ALT 157 H D Alkaline Phosphatase 54 Total Protein 5.3 L Albumin 2.9 L D Globulin 2.4 Albumin/Globulin Ratio 1.2 Venous Blood Potassium Urine Color Urine Clarity Urine pH Ur Specific [place] Urine Protein Urine Glucose (UA) Urine Ketones Urine Blood Urine Nitrate Urine Bilirubin Urine Urobilinogen Ur Leukocyte Esterase Urine RBC (Auto) Urine Microscopic WBC Ur Squamous Epith Cells Hepatitis A IgM Ab Hep Bs Antigen Hep B Core IgM Ab Hepatitis C Antibody 08/07/17 08/07/17 08/07/17 00:30 01:18 10:38 WBC RBC Hgb Hct MCV MCH MCHC RDW Plt Count MPV Neut % (Auto) Lymph % (Auto) [place] % (Auto) Eos % (Auto) Baso % (Auto) Neut # (Auto) Lymph # (Auto) [place] # (Auto) Eos # (Auto) Baso # (Auto) Neutrophils % (Manual) Band Neutrophils % Lymphocytes % (Manual) Monocytes % (Manual) Basophils % (Manual) Platelet Estimate Large Platelets Hypochromasia (manual) Anisocytosis (manual) Ovalocytes ESR pO2 51 VBG pH 7.38 VBG pCO2 36 L VBG HCO3 22.0 VBG Total CO2 22.4 VBG O2 Sat (Calc) 90.0 H VBG Base Excess -3.3 L VBG Potassium 3.5 L Glucose 115 H Lactate 1.5 FiO2 21.0 Sodium 141.0 Potassium Chloride 115.0 H Carbon Dioxide Anion Gap BUN Creatinine Est GFR ( Amer) Est GFR (Non-Af Amer) POC Glucose (mg/dL) Random Glucose Calcium Total Bilirubin AST ALT Alkaline Phosphatase Total Protein Albumin Globulin Albumin/Globulin Ratio Venous Blood Potassium 3.5 L Urine Color Straw Urine Clarity Clear Urine pH 6.0 Ur Specific [place] 1.005 Urine Protein Negative Urine Glucose (UA) Neg Urine Ketones Negative Urine Blood Negative Urine Nitrate Negative Urine Bilirubin Negative Urine Urobilinogen 0.2-1.0 Ur Leukocyte Esterase Neg Urine RBC (Auto) < 1 Urine Microscopic WBC < 1 Ur Squamous Epith Cells 1 Hepatitis A IgM Ab Negative Hep Bs Antigen Negative Hep B Core IgM Ab Negative Hepatitis C Antibody Negative 08/07/17 08/07/17 16:02 16:43 WBC RBC Hgb Hct MCV MCH MCHC RDW Plt Count MPV Neut % (Auto) Lymph % (Auto) [place] % (Auto) Eos % (Auto) Baso % (Auto) Neut # (Auto) Lymph # (Auto) [place] # (Auto) Eos # (Auto) Baso # (Auto) Neutrophils % (Manual) Band Neutrophils % Lymphocytes % (Manual) Monocytes % (Manual) Basophils % (Manual) Platelet Estimate Large Platelets Hypochromasia (manual) Anisocytosis (manual) Ovalocytes ESR 12 pO2 VBG pH VBG pCO2 VBG HCO3 VBG Total CO2 VBG O2 Sat (Calc) VBG Base Excess VBG Potassium Glucose Lactate FiO2 Sodium Potassium Chloride Carbon Dioxide Anion Gap BUN Creatinine Est GFR ( Amer) Est GFR (Non-Af Amer) POC Glucose (mg/dL) 98 Random Glucose Calcium Total Bilirubin AST ALT Alkaline Phosphatase Total Protein Albumin Globulin Albumin/Globulin Ratio Venous Blood Potassium Urine Color Urine Clarity Urine pH Ur Specific [place] Urine Protein Urine Glucose (UA) Urine Ketones Urine Blood Urine Nitrate Urine Bilirubin Urine Urobilinogen Ur Leukocyte Esterase Urine RBC (Auto) Urine Microscopic WBC Ur Squamous Epith Cells Hepatitis A IgM Ab Hep Bs Antigen Hep B Core IgM Ab Hepatitis C Antibody - EKG Data EKG Interpreted by: Myself Assessment & Plan (1) Hypotension Assessment and Plan: uncleasr etriology. no ischemia noted on EKG. recommend echocardiogram to assess LV function. Status: Acute
[2017-08-08 05:57] LABS: BASO % 0.2 % (0.0-2.0); EOS # 0.1 K/uL (0.0-0.7); EOS % 1.6 % (0.0-4.0); HEMOGLOBIN 11.7 g/dL (12.0-16.0); LYMPH # 1.5 K/uL (1.0-4.3); LYMPH % 28.1 % (20.0-40.0); MEAN CELL VOLUME 90.8 fl (81.0-99.0); MEAN CORPUSCULAR HGB CONC 33.1 g/dL (33.0-37.0); MEAN PLATELET VOLUME 9.9 fl (7.2-11.7); MONO # 0.5 K/uL (0.0-0.8); MONO % 8.9 % (0.0-10.0); NEUT # 3.2 K/uL (1.8-7.0); NEUT % 61.2 % (50.0-75.0); NRBC % 0.1 % (0.0-0.0); RBC 3.89 Mil/uL (3.80-5.20); RED CELL DISTRIBUTION WIDTH 13.7 % (11.5-14.5); WHITE BLOOD COUNT 5.2 K/uL (4.8-10.8)
[2017-08-08 06:28] LABS: ALB/GLOB RATIO 1.2 (1.0-2.1); ALT/SGPT 288 U/L (9-52); AST/SGOT 151 U/L (14-36); BLOOD UREA NITROGEN 7 mg/dl (7-17); CALCIUM 8.2 mg/dL (8.4-10.2); GFR AFRICAN-AMERICAN > 60; GFR NON-AFRICAN AMERICAN > 60
--- NOTE | 2017-08-08 08:10 | CP.PCM.PN ---
Subjective - Date & Time of Evaluation Date of Evaluation: 08/08/17 Time of Evaluation: 08:09 - Subjective Subjective: pt doing well, mild epigastric discomfort. no f/c, n/v/d. bw noted w/ elev lft. bp normalized. all consults appriciated. crp elevated, esr normal Objective - Vital Signs/Intake and Output Vital Signs (last 24 hours): Temp Pulse Resp BP Pulse Ox 97.8 F 41 L 14 170/74 H 97 08/08/17 04:00 08/08/17 06:00 08/08/17 06:00 08/08/17 06:00 08/08/17 06:00 Intake and Output: 08/08/17 08/08/17 06:59 18:59 Intake Total 1025 Output Total 2 Balance 1023 - Medications Medications: Current Medications Dicyclomine HCl (Bentyl) 20 mg PO QID PRN PRN Reason: abd cramping Famotidine (Pepcid) 20 mg IVP Q12 [facility] Last Admin: 08/07/17 20:23 Dose: 20 mg Ciprofloxacin (Cipro 400mg/200ml Dsw) 400 mg in 200 mls @ 200 mls/hr IVPB Q12 [facility] PRN Reason: Protocol Last Admin: 08/07/17 20:25 Dose: 200 mls/hr Metronidazole (Flagyl 500mg/100ml Ns) 100 mls @ 100 mls/hr IVPB Q12 [facility] PRN Reason: Protocol Last Admin: 08/07/17 20:23 Dose: 100 mls/hr Sodium Chloride (Sodium Chloride 0.9%) 1,000 mls @ 75 mls/hr IV .[id number] [facility] Stop: 08/08/17 17:59 Ketorolac Tromethamine (Toradol) 30 mg IVP Q6 PRN PRN Reason: Pain, moderate (4-7) Last Admin: 08/08/17 05:34 Dose: 30 mg Morphine Sulfate (Morphine) 2 mg IVP Q4 PRN PRN Reason: Pain, severe (8-10) Ondansetron HCl (Zofran Inj) 4 mg IVP Q6 PRN PRN Reason: Nausea/Vomiting Last Admin: 08/07/17 23:07 Dose: 4 mg - Labs Labs: 08/08/17 04:20 08/08/17 04:20 - Constitutional Appears: Well, Non-toxic, No Acute Distress - Head Exam Head Exam: ATRAUMATIC, NORMAL INSPECTION, NORMOCEPHALIC - Eye Exam Eye Exam: EOMI, Normal appearance, PERRL Pupil Exam: NORMAL ACCOMODATION, PERRL - ENT Exam ENT Exam: Mucous Membranes Moist, Normal Exam - Neck Exam Neck Exam: Full ROM, Normal Inspection. absent: Lymphadenopathy - Respiratory Exam Respiratory Exam: Clear to Ausculation Bilateral, NORMAL BREATHING PATTERN - Cardiovascular Exam Cardiovascular Exam: REGULAR RHYTHM, RRR, +S1, +S2. absent: Murmur - GI/Abdominal Exam GI & Abdominal Exam: Soft, Normal Bowel Sounds. absent: Tenderness - Extremities Exam Extremities Exam: Full ROM, Normal Capillary Refill, Normal Inspection. absent : Joint Swelling, Pedal Edema - Back Exam Back Exam: NORMAL INSPECTION - Neurological Exam Neurological Exam: Alert, Awake, CN II-XII Intact, Normal Gait, Oriented x3 - Psychiatric Exam Psychiatric exam: Normal Affect, Normal Mood - Skin Skin Exam: Dry, Intact, Normal Color, Warm Assessment and Plan (1) DVT prophylaxis Status: Acute (2) Hypotension Status: Acute (3) Chronic fatigue Status: Acute (4) Diverticular disease Status: Acute (5) Headache Status: Acute - Assessment and Plan (Free Text) Assessment: (1) DVT prophylaxis scd and ae hose amnulation Status: Acute (2) Hypotension Assessment and Plan: ivf, icu care- now normal and downgraded monitor closely no obv s/s sepsis at this time Status: Acute (3) Chronic fatigue Assessment and Plan: outpt f/u-cardio and bw Status: Acute (4) Diverticular disease Assessment and Plan: gi/surgery consult cipro/flagyl pain control, nausea control liquid diet Status: Acute (5) Headache Assessment and Plan: ct head negative no neuro deficit Status: Acute 5-elev lft w/ epigastric pain-abd us, gi, surgery to follow pt downgraded and is doing well.
[2017-08-08] MEDS: metroNIDAZOLE 500mg/100ml NS 100 ML IVPB SCH ×2 (08:29→20:25)
--- NOTE | 2017-08-08 09:04 | PQF GENQUE ---
This form is a permanent part of the medical record 08/08/18 Alfredo Quiroz DPN, [facility] Would you please clarify if there is an associated diagnosis or not to go along with the following lab findings. Platelet count on admission 128 > 97 > 81. Clarification of your documentation is requested to better reflect the severity of illness and intensity of treatment of your patient. Indicators present PHYSICIAN'S RESPONSE Based on your medical judgment of the clinical indicators outlined above please clarify the following: [] Practitioner response itp unkn etiology [] If unable to determine, please check the box, sign and date. Present On Admission (POA) Indicator: [] Present at the time of admission [] Not present at the time of admission [] Clinically Undetermined In responding to this query, please exercise your independent professional judgment. The fact that a question is asked does not imply that any particular answer is desired or expected. Thank you for your clarification on this documentation. If you have any questions please call:ext [phone] * Thank you, Naida Christy RN CDMP MTDD
--- NOTE | 2017-08-08 09:10 | CP.PCM.PN ---
Subjective - Date & Time of Evaluation Date of Evaluation: 08/08/17 Time of Evaluation: 08:45 - Subjective Subjective: Patient was seen and examined at the bedside. Denies any abdominal pain, tolerating clear liquid diet, passing flatus. Objective - Vital Signs/Intake and Output Vital Signs (last 24 hours): Temp Pulse Resp BP Pulse Ox 98.6 F 50 L 18 133/64 96 08/08/17 08:00 08/08/17 08:00 08/08/17 08:00 08/08/17 08:00 08/08/17 08:00 Intake and Output: 08/08/17 08/08/17 06:59 18:59 Intake Total 1025 75 Output Total 2 Balance 1023 75 - Medications Medications: Current Medications Dicyclomine HCl (Bentyl) 20 mg PO QID PRN PRN Reason: abd cramping Famotidine (Pepcid) 20 mg IVP Q12 [facility] Last Admin: 08/08/17 08:28 Dose: 20 mg Ciprofloxacin (Cipro 400mg/200ml Dsw) 400 mg in 200 mls @ 200 mls/hr IVPB Q12 [facility] PRN Reason: Protocol Last Admin: 08/07/17 20:25 Dose: 200 mls/hr Metronidazole (Flagyl 500mg/100ml Ns) 100 mls @ 100 mls/hr IVPB Q12 [facility] PRN Reason: Protocol Last Admin: 08/08/17 08:29 Dose: 100 mls/hr Sodium Chloride (Sodium Chloride 0.9%) 1,000 mls @ 75 mls/hr IV .[id number] [facility] Stop: 08/08/17 17:59 Last Admin: 08/08/17 08:36 Dose: 75 mls/hr Ketorolac Tromethamine (Toradol) 30 mg IVP Q6 PRN PRN Reason: Pain, moderate (4-7) Last Admin: 08/08/17 05:34 Dose: 30 mg Morphine Sulfate (Morphine) 2 mg IVP Q4 PRN PRN Reason: Pain, severe (8-10) Ondansetron HCl (Zofran Inj) 4 mg IVP Q6 PRN PRN Reason: Nausea/Vomiting Last Admin: 08/07/17 23:07 Dose: 4 mg - Labs Labs: 08/08/17 04:20 08/08/17 04:20 - Constitutional Appears: Well, Non-toxic, No Acute Distress - Head Exam Head Exam: ATRAUMATIC, NORMAL INSPECTION, NORMOCEPHALIC - Eye Exam Eye Exam: EOMI, Normal appearance, PERRL Pupil Exam: NORMAL ACCOMODATION, PERRL - ENT Exam ENT Exam: Mucous Membranes Moist, Normal Exam - Neck Exam Neck Exam: Full ROM, Normal Inspection - Respiratory Exam Respiratory Exam: Clear to Ausculation Bilateral, NORMAL BREATHING PATTERN - Cardiovascular Exam Cardiovascular Exam: REGULAR RHYTHM, +S1, +S2 - GI/Abdominal Exam GI & Abdominal Exam: Soft, Normal Bowel Sounds Additional comments: NT, ND, no rebound, no guarding, well healed scars from prior surgeries - Rectal Exam Rectal Exam: Deferred - Extremities Exam Extremities Exam: Full ROM, Normal Inspection - Neurological Exam Neurological Exam: Alert, Awake, Oriented x3 - Psychiatric Exam Psychiatric exam: Normal Affect, Normal Mood - Skin Skin Exam: Dry, Intact, Normal Color, Warm Assessment and Plan - Assessment and Plan (Free Text) Assessment: 56 y.o. female with resolving abdominal pain Plan: - start low residue diet - pain control - No general surgery intervention at present time - Continue care as per medical and ICU teams - General surgery will sign off - please re-consult as needed
[2017-08-08] MEDS: Ciprofloxacin 400mg/200ml D5W 400 MG/200 ML BAG IVPB SCH ×2 (09:11→20:25)
--- NOTE | 2017-08-08 11:47 | CP.PCM.PN ---
Subjective - Date & Time of Evaluation Date of Evaluation: 08/08/17 Time of Evaluation: 09:45 - Subjective Subjective: PGY5 GI Fellow Progress Note Patient seen and examined bedside this morning. The patient states that she is feeling better overall and has no chest or abdominal pain at this time. Denies any events overnight. Eager to advance diet. 12 system ROS performed and negative except where stated. Objective - Vital Signs/Intake and Output Vital Signs (last 24 hours): Temp Pulse Resp BP Pulse Ox 98.6 F 45 L 16 141/80 98 08/08/17 08:00 08/08/17 10:00 08/08/17 10:00 08/08/17 10:00 08/08/17 10:00 Intake and Output: 08/08/17 08/08/17 06:59 18:59 Intake Total 1025 690 Output Total 2 Balance 1023 690 - Medications Medications: Current Medications Dicyclomine HCl (Bentyl) 20 mg PO QID PRN PRN Reason: abd cramping Famotidine (Pepcid) 20 mg IVP Q12 [facility] Last Admin: 08/08/17 08:28 Dose: 20 mg Ciprofloxacin (Cipro 400mg/200ml Dsw) 400 mg in 200 mls @ 200 mls/hr IVPB Q12 SHELLI PRN Reason: Protocol Last Admin: 08/08/17 09:11 Dose: 200 mls/hr Metronidazole (Flagyl 500mg/100ml Ns) 100 mls @ 100 mls/hr IVPB Q12 SHELLI PRN Reason: Protocol Last Admin: 08/08/17 08:29 Dose: 100 mls/hr Sodium Chloride (Sodium Chloride 0.9%) 1,000 mls @ 75 mls/hr IV .[id number] [facility] Stop: 08/08/17 17:59 Last Admin: 08/08/17 08:36 Dose: 75 mls/hr Ketorolac Tromethamine (Toradol) 30 mg IVP Q6 PRN PRN Reason: Pain, moderate (4-7) Last Admin: 08/08/17 05:34 Dose: 30 mg Morphine Sulfate (Morphine) 2 mg IVP Q4 PRN PRN Reason: Pain, severe (8-10) Ondansetron HCl (Zofran Inj) 4 mg IVP Q6 PRN PRN Reason: Nausea/Vomiting Last Admin: 08/07/17 23:07 Dose: 4 mg - Labs Labs: 08/08/17 04:20 08/08/17 04:20 - Constitutional Appears: Non-toxic, No Acute Distress - Eye Exam Eye Exam: EOMI, PERRL - ENT Exam ENT Exam: Mucous Membranes Moist - Respiratory Exam Respiratory Exam: Clear to Ausculation Bilateral. absent: Rales, Rhonchi, Wheezes - Cardiovascular Exam Cardiovascular Exam: Bradycardia, REGULAR RHYTHM, +S1, +S2 - GI/Abdominal Exam GI & Abdominal Exam: Soft, Normal Bowel Sounds. absent: Distended, Firm, Guarding, Rigid, Tenderness, Organomegaly - Extremities Exam Extremities Exam: Normal Inspection. absent: Pedal Edema - Neurological Exam Neurological Exam: Alert, Awake, Oriented x3 - Psychiatric Exam Psychiatric exam: Normal Affect, Normal Mood - Skin Skin Exam: Dry, Warm Assessment and Plan - Assessment and Plan (Free Text) Assessment: Patient is a 56yo female with PMHx significant for diverticulosis who presented to the ED with complaint of dysuria, lower abdominal/pelvic pain, nausea and vomiting for 2-3 days duration. -Lower abdominal pain/dysuria - resolved Plan: -CT reviewed - diverticulosis without evidence of acute diverticulitis or other intra-abdominal pathology -Pain resolved at this juncture -Would encourage the patient to avoid constipation as possible - augment water/ fiber intake and use of Miralax daily if needed -Cardiac work up ongoing -Diet as tolerated from GI standpoint, no restrictions needed -Analgesia/antiemetics per primary service -Can switch pepcid to PPI if dyspepsia persists
[2017-08-08 13:05] LABS: T4 4.26 ug/dl (5.5-11.0)
[2017-08-08 13:19] LABS: T3 0.541 nmol/L (1.49-2.60)
--- NOTE | 2017-08-08 15:17 | US ---
HISTORY: epigastric pain, elev lft COMPARISON: CT scan of the abdomen pelvis dated 08/07/2017. TECHNIQUE: Sonographic evaluation of the right upper quadrant of the abdomen. FINDINGS: LIVER: Measures 17.6 cm in length. Increased echogenicity of the liver parenchyma. No mass. No intrahepatic bile duct dilatation. Small amount of perihepatic ascites GALLBLADDER: Prior cholecystectomy. COMMON BILE DUCT: Measures 8 mm. No stones. No dilatation. PANCREAS: Unremarkable as visualized. No mass. No ductal dilatation. RIGHT KIDNEY: Measures 11.1 x 4.0 x 4.4 cm in length. Normal echogenicity. No calculus, mass, or hydronephrosis. AORTA: No aneurysmal dilatation. IVC: Unremarkable. OTHER FINDINGS: None . IMPRESSION: Hepatic steatosis. Trace perihepatic ascites. Prior cholecystectomy.
--- NOTE | 2017-08-08 18:21 | CP.PCM.PN ---
Subjective - Date & Time of Evaluation Date of Evaluation: 08/08/17 Time of Evaluation: 17:40 - Subjective Subjective: patient has less abdominal pain. was bradycardic, but no symptoms. Objective - Vital Signs/Intake and Output Vital Signs (last 24 hours): Temp Pulse Resp BP Pulse Ox 98.4 F 44 L 19 120/75 98 08/08/17 16:00 08/08/17 18:00 08/08/17 18:00 08/08/17 18:00 08/08/17 18:00 Intake and Output: 08/08/17 08/08/17 06:59 18:59 Intake Total 1025 1500 Output Total 2 400 Balance 1023 1100 - Medications Medications: Current Medications Dicyclomine HCl (Bentyl) 20 mg PO QID PRN PRN Reason: abd cramping Famotidine (Pepcid) 20 mg IVP Q12 [facility] Last Admin: 08/08/17 08:28 Dose: 20 mg Ciprofloxacin (Cipro 400mg/200ml Dsw) 400 mg in 200 mls @ 200 mls/hr IVPB Q12 SHELLI PRN Reason: Protocol Last Admin: 08/08/17 09:11 Dose: 200 mls/hr Metronidazole (Flagyl 500mg/100ml Ns) 100 mls @ 100 mls/hr IVPB Q12 SHELLI PRN Reason: Protocol Last Admin: 08/08/17 08:29 Dose: 100 mls/hr Ketorolac Tromethamine (Toradol) 30 mg IVP Q6 PRN PRN Reason: Pain, moderate (4-7) Last Admin: 08/08/17 05:34 Dose: 30 mg Morphine Sulfate (Morphine) 2 mg IVP Q4 PRN PRN Reason: Pain, severe (8-10) Ondansetron HCl (Zofran Inj) 4 mg IVP Q6 PRN PRN Reason: Nausea/Vomiting Last Admin: 08/07/17 23:07 Dose: 4 mg - Labs Labs: 08/08/17 04:20 08/08/17 04:20 - Constitutional Appears: Non-toxic - Head Exam Head Exam: NORMAL INSPECTION - Eye Exam Eye Exam: Normal appearance - ENT Exam ENT Exam: Mucous Membranes Moist - Neck Exam Neck Exam: Full ROM - Respiratory Exam Respiratory Exam: Decreased Breath Sounds - Cardiovascular Exam Cardiovascular Exam: Bradycardia - GI/Abdominal Exam GI & Abdominal Exam: Normal Bowel Sounds - Rectal Exam Rectal Exam: Deferred - Extremities Exam Extremities Exam: Pedal Edema - Back Exam Back Exam: NORMAL INSPECTION - Neurological Exam Neurological Exam: Alert - Psychiatric Exam Psychiatric exam: Normal Affect - Skin Skin Exam: Normal Color Assessment and Plan (1) Hypotension Assessment & Plan: likley due to hypothyroidism. consider thyroid replacement. Status: Acute
--- NOTE | 2017-08-08 21:12 | CP.PCM.CON ---
History of Present Illness - History of Present Illness History of Present Illness: 56 year old female with no past medical history, admitted with abdominal pain, nause, and dysuria, with progressive thrombocytopenia and anemia. The patient was told she had low platelets about 1 week ago but is unsure about the number. She notes she has had abdominal pain for about 1 month but has been more intense and associated with nausea and vomiting. She denies fever but does have chills at times. She denies abnormal bleeding and bruising. Past medical history: None Past surgical history: Hysterectomy ? uterine cancer, cholecystectomy Family history: Denies hematologic and oncologic problems Social history: Denies tobacco, alcohol, and illicit drug use. Allergies: NKA Review of systems: All remaining review of systems including HEENT, cardiovascular, respiratory, gastrointestinal, genitourinary, musculoskeletal, dermatologic, neurologic, and psychiatric are negative unless mentioned in the HPI. Past Patient History - Past Medical History & Family History Past Medical History?: Yes - Past Social History Smoking Status: Never Smoked Chewing Tobacco Use: No Cigar Use: No Alcohol: None Drugs: Denies - CARDIAC Hx Cardiac Disorders: No - PULMONARY Hx Respiratory Disorders: No - NEUROLOGICAL Hx Neurological Disorder: No - HEENT Hx HEENT Problems: No - RENAL Hx Chronic Kidney Disease: No - ENDOCRINE/METABOLIC Hx Endocrine Disorders: No - HEMATOLOGICAL/ONCOLOGICAL Hx Blood Disorders: No - INTEGUMENTARY Hx Dermatological Problems: No - MUSCULOSKELETAL/RHEUMATOLOGICAL Hx Musculoskeletal Disorders: No Hx Falls: No - GASTROINTESTINAL Hx Gastrointestinal Disorders: Yes Other/Comment: diverticulosis - GENITOURINARY/GYNECOLOGICAL Hx Genitourinary Disorders: No - PSYCHIATRIC Hx Psychophysiologic Disorder: No Hx Substance Use: No - SURGICAL HISTORY Hx Surgeries: Yes Hx Section: Yes Hx Cholecystectomy: Yes Hx Hysterectomy: Yes - ANESTHESIA Hx Anesthesia: Yes Hx Anesthesia Reactions: Yes Hx Malignant Hyperthermia: No Meds Allergies/Adverse Reactions: Allergies Allergy/AdvReac Type Severity Reaction Status Date / Time No Known Allergies Allergy Verified 08/06/17 12:14 - Medications Medications: Current Medications Dicyclomine HCl (Bentyl) 20 mg PO QID PRN PRN Reason: abd cramping Famotidine (Pepcid) 20 mg IVP Q12 [facility] Last Admin: 08/08/17 20:25 Dose: 20 mg Ciprofloxacin (Cipro 400mg/200ml Dsw) 400 mg in 200 mls @ 200 mls/hr IVPB Q12 SHELLI PRN Reason: Protocol Last Admin: 08/08/17 20:25 Dose: 200 mls/hr Metronidazole (Flagyl 500mg/100ml Ns) 100 mls @ 100 mls/hr IVPB Q12 SHELLI PRN Reason: Protocol Last Admin: 08/08/17 20:25 Dose: 100 mls/hr Ketorolac Tromethamine (Toradol) 30 mg IVP Q6 PRN PRN Reason: Pain, moderate (4-7) Last Admin: 08/08/17 05:34 Dose: 30 mg Morphine Sulfate (Morphine) 2 mg IVP Q4 PRN PRN Reason: Pain, severe (8-10) Ondansetron HCl (Zofran Inj) 4 mg IVP Q6 PRN PRN Reason: Nausea/Vomiting Last Admin: 08/07/17 23:07 Dose: 4 mg Physical Exam - Head Exam Head Exam: ATRAUMATIC - Eye Exam Eye Exam: Normal appearance - ENT Exam ENT Exam: Mucous Membranes Dry - Respiratory Exam Respiratory Exam: NORMAL BREATHING PATTERN - Cardiovascular Exam Cardiovascular Exam: +S1, +S2 - GI/Abdominal Exam GI & Abdominal Exam: Normal Bowel Sounds - Neurological Exam Neurological exam: Oriented x3 - Psychiatric Exam Psychiatric exam: Normal Affect, Normal Mood - Skin Skin Exam: Warm Results - Vital Signs Recent Vital Signs: Last Vital Signs Temp 98.4 F 08/08/17 16:00 Pulse 44 L 08/08/17 18:00 Resp 19 08/08/17 18:00 BP 120/75 08/08/17 18:00 Pulse Ox 98 08/08/17 18:00 - Labs Result Diagrams: 08/08/17 04:20 08/08/17 04:20 Labs: Laboratory Results - last 24 hr 08/07/17 08/08/17 08/08/17 21:32 04:20 04:20 WBC 5.2 RBC 3.89 Hgb 11.7 L Hct 35.3 MCV 90.8 MCH 30.0 MCHC 33.1 RDW 13.7 Plt Count 81 L MPV 9.9 Neut % (Auto) 61.2 Lymph % (Auto) 28.1 Graham % (Auto) 8.9 Eos % (Auto) 1.6 Baso % (Auto) 0.2 Neut # (Auto) 3.2 Lymph # (Auto) 1.5 Graham # (Auto) 0.5 Eos # (Auto) 0.1 Baso # (Auto) 0.0 Retic Count Sodium 143 Potassium 3.7 Chloride 112 H Carbon Dioxide 19 L Anion Gap 16 BUN 7 Creatinine 0.7 Est GFR ( Amer) > 60 Est GFR (Non-Af Amer) > 60 POC Glucose (mg/dL) 95 Random Glucose 91 Calcium 8.2 L Ferritin Total Bilirubin 0.7 AST 151 H ALT 288 H D Alkaline Phosphatase 70 Total Protein 5.5 L Albumin 3.0 L Globulin 2.4 Albumin/Globulin Ratio 1.2 Vitamin B12 Thyroxine (T4) Total T3 TSH 3rd Generation HIV 1&2 Antibody Screen 08/08/17 08/08/17 08/08/17 09:10 12:00 12:00 WBC RBC Hgb Hct MCV MCH MCHC RDW Plt Count MPV Neut % (Auto) Lymph % (Auto) Graham % (Auto) Eos % (Auto) Baso % (Auto) Neut # (Auto) Lymph # (Auto) Graham # (Auto) Eos # (Auto) Baso # (Auto) Retic Count Sodium Potassium Chloride Carbon Dioxide Anion Gap BUN Creatinine Est GFR ( Amer) Est GFR (Non-Af Amer) POC Glucose (mg/dL) Random Glucose Calcium Ferritin 148.0 Total Bilirubin AST ALT Alkaline Phosphatase Total Protein Albumin Globulin Albumin/Globulin Ratio Vitamin B12 472 Thyroxine (T4) 4.26 L Total T3 0.541 L TSH 3rd Generation 7.34 H HIV 1&2 Antibody Screen Negative 08/08/17 12:00 WBC RBC Hgb Hct MCV MCH MCHC RDW Plt Count MPV Neut % (Auto) Lymph % (Auto) Graham % (Auto) Eos % (Auto) Baso % (Auto) Neut # (Auto) Lymph # (Auto) Graham # (Auto) Eos # (Auto) Baso # (Auto) Retic Count 1.1 Sodium Potassium Chloride Carbon Dioxide Anion Gap BUN Creatinine Est GFR ( Amer) Est GFR (Non-Af Amer) POC Glucose (mg/dL) Random Glucose Calcium Ferritin Total Bilirubin AST ALT Alkaline Phosphatase Total Protein Albumin Globulin Albumin/Globulin Ratio Vitamin B12 Thyroxine (T4) Total T3 TSH 3rd Generation HIV 1&2 Antibody Screen Assessment & Plan (1) Thrombocytopenia Assessment and Plan: mild may be exacerbated by acute illness check HIV and manual platelet count will review smear Status: Acute (2) Anemia Assessment and Plan: mild retic, b12, folate, ferritin sent to [facility] may Thank you for this interesting consult. Status: Acute
[2017-08-09 06:10] LABS: BASO % 0.2 % (0.0-2.0); EOS # 0.1 K/uL (0.0-0.7); EOS % 2.8 % (0.0-4.0); HEMOGLOBIN 12.5 g/dL (12.0-16.0); LYMPH # 1.7 K/uL (1.0-4.3); LYMPH % 31.9 % (20.0-40.0); MEAN CORPUSCULAR HEMOGLOBIN 30.3 pg (27.0-31.0); MEAN CORPUSCULAR HGB CONC 33.6 g/dL (33.0-37.0); MEAN PLATELET VOLUME 10.1 fl (7.2-11.7); MONO # 0.6 K/uL (0.0-0.8); MONO % 11.2 % (0.0-10.0); NEUT # 2.9 K/uL (1.8-7.0); NEUT % 53.9 % (50.0-75.0); NRBC % 0.2 % (0.0-0.0); RBC 4.13 Mil/uL (3.80-5.20); RED CELL DISTRIBUTION WIDTH 13.8 % (11.5-14.5); WHITE BLOOD COUNT 5.4 K/uL (4.8-10.8)
[2017-08-09 06:21] LABS: ALB/GLOB RATIO 1.3 (1.0-2.1); ALBUMIN 3.4 g/dL (3.5-5.0); ALT/SGPT 228 U/L (9-52); AST/SGOT 90 U/L (14-36); BLOOD UREA NITROGEN 9 mg/dl (7-17); CALCIUM 8.7 mg/dL (8.4-10.2); GFR AFRICAN-AMERICAN > 60; GFR NON-AFRICAN AMERICAN > 60
[2017-08-09 06:25] VITALS: O2SAT 96
[2017-08-09] MEDS ORDERED: Levothyroxine 25 MCG TAB PO SCH (06:30)
--- NOTE | 2017-08-09 08:05 | CP.PCM.DIS ---
Provider - Provider Date of Admission: 08/07/17 01:14 Attending physician: Martin Alvarado MD Time Spent in preparation of Discharge (in minutes): 15 Diagnosis - Discharge Diagnosis (1) DVT prophylaxis Status: Acute (2) Hypotension Status: Acute (3) Chronic fatigue Status: Acute (4) Diverticular disease Status: Acute (5) Headache Status: Acute Hospital Course - Lab Results Lab Results: Micro Results 08/07/17 06:55 Blood-Venous Blood Culture - Preliminary NO GROWTH AFTER 48 HOURS 08/07/17 06:55 Blood-Venous Blood Culture - Preliminary NO GROWTH AFTER 48 HOURS 08/07/17 06:40 Naris MRSA Culture (Admit) - Final MRSA NOT DETECTED 08/07/17 00:30 Urine Urine Culture - Final No Growth (<1,000 CFU/ML) Most Recent Lab Values WBC 5.4 K/uL (4.8-10.8) 08/09/17 04:30 RBC 4.13 Mil/uL (3.80-5.20) 08/09/17 04:30 Hgb 12.5 g/dL (12.0-16.0) 08/09/17 04:30 Hct 37.2 % (34.0-47.0) 08/09/17 04:30 MCV 90.0 fl (81.0-99.0) 08/09/17 04:30 MCH 30.3 pg (27.0-31.0) 08/09/17 04:30 MCHC 33.6 g/dL (33.0-37.0) 08/09/17 04:30 RDW 13.8 % (11.5-14.5) 08/09/17 04:30 Plt Count 107 K/uL (130-400) L D 08/09/17 04:30 Manual Plt Count 174 K/uL (130-400) 08/09/17 04:30 MPV 10.1 fl (7.2-11.7) 08/09/17 04:30 Neut % (Auto) 53.9 % (50.0-75.0) 08/09/17 04:30 Lymph % (Auto) 31.9 % (20.0-40.0) 08/09/17 04:30 [place] % (Auto) 11.2 % (0.0-10.0) H 08/09/17 04:30 Eos % (Auto) 2.8 % (0.0-4.0) 08/09/17 04:30 Baso % (Auto) 0.2 % (0.0-2.0) 08/09/17 04:30 Neut # (Auto) 2.9 K/uL (1.8-7.0) 08/09/17 04:30 Lymph # (Auto) 1.7 K/uL (1.0-4.3) 08/09/17 04:30 [place] # (Auto) 0.6 K/uL (0.0-0.8) 08/09/17 04:30 Eos # (Auto) 0.1 K/uL (0.0-0.7) 08/09/17 04:30 Baso # (Auto) 0.0 K/uL (0.0-0.2) 08/09/17 04:30 Neutrophils % (Manual) 83 % (42-75) H 08/07/17 00:30 Band Neutrophils % 2 % (0-2) 08/07/17 00:30 Lymphocytes % (Manual) 8 % (20-50) L 08/07/17 00:30 Monocytes % (Manual) 4 % (0-10) 08/07/17 00:30 Basophils % (Manual) 3 % (0-2) H 08/07/17 00:30 Platelet Estimate Markedly decreased (NORMAL) L 08/07/17 00:30 Large Platelets Present 08/07/17 00:30 Hypochromasia (manual) Moderate 08/07/17 00:30 Anisocytosis (manual) Slight 08/07/17 00:30 Ovalocytes Slight 08/07/17 00:30 ESR 12 mm/hr (0-30) 08/07/17 16:02 Retic Count 1.1 % (0.5-1.5) 08/08/17 12:00 pO2 51 mm/Hg (30-55) 08/07/17 01:18 VBG pH 7.38 (7.32-7.43) 08/07/17 01:18 VBG pCO2 36 mmHg (40-60) L 08/07/17 01:18 VBG HCO3 22.0 mmol/L 08/07/17 01:18 VBG Total CO2 22.4 mmol/L (22-28) 05/08/18 01:18 VBG O2 Sat (Calc) 90.0 % (40-65) H 08/07/17 01:18 VBG Base Excess -3.3 mmol/L (0.0-2.0) L 08/07/17 01:18 VBG Potassium 3.5 mmol/L (3.6-5.2) L 08/07/17 01:18 Sodium 141.0 mmol/L (132-148) 08/07/17 01:18 Chloride 115.0 mmol/L (98-107) H 08/07/17 01:18 Glucose 115 mg/dL (65-105) H 08/07/17 01:18 Lactate 1.5 mmol/L (0.7-2.1) 08/07/17 01:18 FiO2 21.0 % 08/07/17 01:18 Sodium 143 mmol/l (132-148) 08/09/17 04:30 Potassium 3.7 MMOL/L (3.6-5.0) 08/09/17 04:30 Chloride 107 mmol/L (98-107) 08/09/17 04:30 Carbon Dioxide 24 mmol/L (22-30) 08/09/17 04:30 Anion Gap 16 (10-20) 08/09/17 04:30 BUN 9 mg/dl (7-17) 08/09/17 04:30 Creatinine 0.8 mg/dl (0.7-1.2) 08/09/17 04:30 Est GFR ( Amer) > 60 08/09/17 04:30 Est GFR (Non-Af Amer) > 60 08/09/17 04:30 POC Glucose (mg/dL) 95 mg/dL (65-110) 08/07/17 21:32 Random Glucose 86 mg/dL (65-105) 08/09/17 04:30 Calcium 8.7 mg/dL (8.4-10.2) 08/09/17 04:30 Ferritin 148.0 ng/Ml (11.1-264.0) 08/08/17 12:00 Total Bilirubin 0.8 mg/dl (0.2-1.3) 08/09/17 04:30 AST 90 U/L (14-36) H D 08/09/17 04:30 ALT 228 U/L (9-52) H D 08/09/17 04:30 Alkaline Phosphatase 70 U/L (38-126) 08/09/17 04:30 C-Reactive Protein 128.00 mg/L (0.0-9.9) H 08/07/17 16:02 Total Protein 5.9 G/DL (6.3-8.2) L 08/09/17 04:30 Albumin 3.4 g/dL (3.5-5.0) L 08/09/17 04:30 Globulin 2.5 gm/dL (2.2-3.9) 08/09/17 04:30 Albumin/Globulin Ratio 1.3 (1.0-2.1) 08/09/17 04:30 Vitamin B12 472 pg/mL (239-931) 08/08/17 12:00 Thyroxine (T4) 4.26 ug/dl (5.5-11.0) L 08/08/17 12:00 Total T3 0.541 nmol/L (1.49-2.60) L 08/08/17 12:00 TSH 3rd Generation 7.34 mIU/ML (0.46-4.68) H 08/08/17 09:10 Venous Blood Potassium 3.5 mmol/L (3.6-5.2) L 08/07/17 01:18 Urine Color Straw (YELLOW) 08/07/17 00:30 Urine Clarity Clear (Clear) 08/07/17 00:30 Urine pH 6.0 (5.0-8.0) 08/07/17 00:30 Ur Specific [place] 1.005 (1.003-1.030) 08/07/17 00:30 Urine Protein Negative mg/dL (NEGATIVE) 08/07/17 00:30 Urine Glucose (UA) Neg mg/dL (Normal) 08/07/17 00:30 Urine Ketones Negative mg/dL (NEGATIVE) 08/07/17 00:30 Urine Blood Negative (NEGATIVE) 08/07/17 00:30 Urine Nitrate Negative (NEGATIVE) 08/07/17 00:30 Urine Bilirubin Negative (NEGATIVE) 08/07/17 00:30 Urine Urobilinogen 0.2-1.0 mg/dL (0.2-1.0) 08/07/17 00:30 Ur Leukocyte Esterase Neg Anila/uL (Negative) 08/07/17 00:30 Urine RBC (Auto) < 1 /hpf (0-3) 08/07/17 00:30 Urine Microscopic WBC < 1 /hpf (0-5) 08/07/17 00:30 Ur Squamous Epith Cells 1 /hpf (0-5) 08/07/17 00:30 Hepatitis A IgM Ab Negative (NEGATIVE) 08/07/17 10:38 Hep Bs Antigen Negative (NEGATIVE) 08/07/17 10:38 Hep B Core IgM Ab Negative (NEGATIVE) 08/07/17 10:38 Hepatitis C Antibody Negative (NEGATIVE) 08/07/17 10:38 HIV 1&2 Antibody Screen Negative (NEGATIVE) 08/08/17 12:00 - Hospital Course Hospital Course: cardio, heme/onc, surgery, gi pain control ct, iv anbx synthroid Discharge Exam - Head Exam Head Exam: ATRAUMATIC, NORMAL INSPECTION, NORMOCEPHALIC - Eye Exam Eye Exam: EOMI, Normal appearance, PERRL Pupil Exam: NORMAL ACCOMODATION, PERRL - Respiratory Exam Respiratory Exam: Clear to PA & Lateral, NORMAL BREATHING PATTERN, UNREMARKABLE - Cardiovascular Exam Cardiovascular Exam: REGULAR RHYTHM, RRR, +S1, +S2 - GI/Abdominal Exam GI & Abdominal Exam: Normal Bowel Sounds, Soft, Unremarkable - Extremities Exam Extremities exam: full ROM, normal capillary refill, normal inspection, pedal pulses present - Back Exam Back exam: FULL ROM - Neurological Exam Neurological exam: Alert, CN II-XII Intact, Normal Gait, Oriented x3, Reflexes Normal - Psychiatric Exam Psychiatric exam: Normal Affect, Normal Mood - Skin Skin Exam: Dry, Intact, Normal Color, Warm Discharge Plan - Discharge Medications Prescriptions: Ciprofloxacin HCl [Cipro] 500 mg PO BID #14 tablet Dicyclomine [Bentyl] 20 mg PO QID PRN #30 tab PRN Reason: abd cramping Levothyroxine [Synthroid] 25 mcg PO DAILY@0630 #30 tab Metronidazole [Flagyl] 500 mg PO Q8 #21 tablet - Follow Up Plan Condition: FAIR Disposition: HOME/ ROUTINE Additional Instructions: final dx-abd pain, hypothyroidism, elev crp, swelling, hypotension, elev lft repeat bw sunday in office, rted prn, meds per med rec meds e-rx outpt f/u w/ specialists. doing well. leela po. no f/c, n/v/d. bw noted
[2017-08-09 08:13] VITALS: TEMP 98.2
[2017-08-09] MEDS: metroNIDAZOLE 500mg/100ml NS 100 ML IVPB SCH (08:56)
[2017-08-09 10:46] VITALS: BP 122/72; PULSE 45; RESP 20
--- NOTE | 2017-08-09 11:48 | CARD ---
APPROVED REPORT EXAM: Two-dimensional and M-mode echocardiogram with Doppler and color Doppler. Other Information Quality : GoodRhythm : NSR INDICATION Dyspnea 2D DIMENSIONS IVSd0.95 (0.7-1.1cm)LVDd3.93 (3.9-5.9cm) LVOT Diameter1.93 (1.8-2.4cm)PWd0.75 (0.7-1.1cm) M-Mode DIMENSIONS Left Atrium (MM)4.27 (2.5-4.0cm)IVSd0.77 (0.7-1.1cm) Aortic Root2.59 (2.2-3.7cm)LVDd4.69 (4.0-5.6cm) Aortic Cusp Exc.1.88 (1.5-2.0cm)PWd0.77 (0.7-1.1cm) IVSs0.88 cmFS (%) 26 % LVDs3.47 (2.0-3.8cm)PWs1.08 cm Mitral Valve MV E Jmsanbiu56.1cm/sMV DECEL [id number] A Jxhalffm11.3cm/s MV MUK79tdB/A ratio1.8MVA (PHT)4.58cm2 TDI Lateral E' Peak V13.12cm/sMedial E' Peak V12.55cm/sE/Lateral E'7.5 E/Medial E'7.8 Pulmonary Valve PV Peak Ebsmlbuo21.5cm/s Tricuspid Valve TR Peak Jdgrrdgy110zg/sRAP [id number] Peak Gr.25mmHg [id number] LEFT VENTRICLE The left ventricle is normal size. There is normal left ventricular wall thickness. The left ventricular function is normal. The left ventricular ejection fraction is 60% There is normal LV segmental wall motion. Transmitral Doppler flow pattern is Grade I-abnormal relaxation pattern. No left ventricle thrombus noted on this study. There is no ventricular septal defect visualized. There is no left ventricular aneurysm. There is no mass noted in the left ventricle. RIGHT VENTRICLE The right ventricle is normal size. There is normal right ventricular wall thickness. The right ventricular systolic function is normal. ATRIA The left atrium size is normal. The right atrium size is normal. The interatrial septum is intact with no evidence for an atrial septal defect. AORTIC VALVE The aortic valve is normal in structure. No aortic regurgitation is present. There is no aortic valvular stenosis. There is no aortic valvular vegetation. MITRAL VALVE The mitral valve is normal in structure. There is no evidence of mitral valve prolapse. There is no mitral valve stenosis. There is no mitral valve regurgitation noted. TRICUSPID VALVE The tricuspid valve is normal in structure. There is moderate tricuspid regurgitation. Right ventricular systolic pressure is estimated at 30-40 mmHg. There is no tricuspid valve prolapse or vegetation. There is no tricuspid valve stenosis. PULMONIC VALVE The pulmonary valve is normal in structure. There is no pulmonic valvular regurgitation. There is no pulmonic valvular stenosis. GREAT VESSELS The aortic root is normal in size. The ascending aorta is normal in size. The IVC is normal in size and collapses >50% with inspiration. PERICARDIAL EFFUSION The pericardium appears normal. There is no pleural effusion. <Conclusion> Normal LV systolic function Impaired Diastolic Relaxation
== END 2017-08-09 11:09 | disposition home or self-care (01) | DRG 144 ==
LOC: H.ER 12:02 → H.ERHOLD 16:45 → H.MEDSURG1 20:43 → H.ICU/CCU 08-07 00:46 → OBSVTOIN 08-07 01:14
PROVIDERS: ADMIT Family Medicine; ATTEND Family Medicine
DX: I95.89 Other hypotension (principal); D69.3 Immune thrombocytopenic purpura; E87.6 Hypokalemia; K57.90 Diverticulosis of intestine, part unspecified, without perforation or abscess without bleeding; D64.9 Anemia, unspecified; E03.9 Hypothyroidism, unspecified; R51 Headache; K59.09 Other constipation; Z85.42 Personal history of malignant neoplasm of other parts of uterus; Z90.710 Acquired absence of both cervix and uterus